=== PATIENT | female | born 1940 | race Caucasian/White ===

== ENCOUNTER 2018-11-14 13:32 | Observation (INO) ==
[2018-11-14 14:30] LABS: Basophils % 0.4 %; Eosinophils % 0.2 %; Hematocrit 40.5 % (35.3-44.9); Hemoglobin 13.3 g/dL (11.5-15.4); Immature Granulocytes % 0.2 % (0-4); Lymphocytes # 0.9 K/mcL (0.6-4.6); Lymphocytes % 11.4 %; Mean Corpuscular HGB Conc 32.8 g/dL (31.6-35.5); Mean Corpuscular Hemoglobin 31.8 pg (28.0-33.3); Mean Corpuscular Volume 96.9 fL (83.0-100.0); Mean Platelet Volume 8.9 fL (9.4-12.4); Monocytes # 0.8 K/mcL (0.0-1.3); Monocytes % 9.5 %; Neutrophils # 6.4 K/mcL (1.6-8.9); Platelet Count 273 K/mcL (140-400); Red Blood Count 4.18 M/mcL (3.82-4.97); Red Cell Distribution Width 13.9 % (11.5-14.5); Segmented Neutrophils % 78.3 %; White Blood Count 8.2 K/mcL (4.3-11.1)
[2018-11-14 14:42] LABS: Bilirubin,Urine Negative (Negative); Blood,Urine Moderate (Negative); Clarity,Urine Cloudy (Clear); Color,Urine Yellow (Yellow); Glucose,Urine (UA) Normal (Normal); Ketones,Urine Trace mg/dL (Negative); Leukocyte Esterase,Urine Small (Negative); Nitrite,Urine Negative (Negative); Protein,Urine Negative (Neg-Trace); Specific Gravity,Urine 1.019 (1.010-1.025); Urobilinogen,Urine Normal (Normal)
[2018-11-14 14:43] LABS: Bacteria,Urine None Seen per hpf (None-Few); Hyaline Casts,Urine None Seen per lpf (None-Few); RBC,Urine 30-50 per hpf (0-3); Squamous Epithelial Cell,Urine Moderate per lpf (None-Few)
[2018-11-14 14:52] LABS: Alanine Aminotransferase 12 Units/L (7-52); Albumin 3.9 g/dL (3.5-5.7); Albumin/Globulin Ratio 1.1 (1.1-2.2); Alkaline Phosphatase 66 Units/L (34-104); Aspartate Amino Transferase 16 Units/L (13-39); BUN/Creatinine Ratio 19 (6-26); Bilirubin,Total 0.4 mg/dL (0.3-1.0); Blood Urea Nitrogen 14 mg/dL (8-23); Calcium 9.5 mg/dL (8.6-10.3); Carbon Dioxide 26 mEq/L (23-29); Chloride 102 mEq/L (98-107); Globulin 3.4 g/dL (2.4-3.5); Glucose 148 mg/dL (70-105); Lipase 14 Units/L (11-82); Osmolality,Calculated 289 (280-300); Potassium 3.9 mEq/L (3.5-5.1); Sodium 138 mEq/L (136-145); Total Protein 7.3 g/dL (6.4-8.9); Troponin I < 0.03 ng/mL (< 0.04); eGFR For African Americans > 60 (> 60); eGFR For Non-African Americans > 60 (> 60)
[2018-11-14] MEDS ORDERED: Morphine Sulfate 2 MG/ML SYRINGE IVP ONE (15:02)
[2018-11-14] MEDS ORDERED: Ondansetron 4 MG/2 ML VIAL IVP ONE (15:02)
[2018-11-14] MEDS ORDERED: Morphine Sulfate Oral CONC 10 MG/0.5 ML ORAL.SYG SL PRN (16:58)
[2018-11-14] MEDS ORDERED: Ondansetron 4 MG/2 ML VIAL IVP PRN (16:58)
[2018-11-14 17:27] LABS: INR 1.1; Prothrombin Time 12.7 Seconds (9.4-12.1)
[2018-11-14] MEDS: 0.9 % Sodium Chloride 1,000 ML IVC SCH (19:08)
[2018-11-14] MEDS: *HR* Heparin 5,000 UNIT/ML VIAL SQ SCH (20:51)
[2018-11-15] MEDS: *HR* Heparin 5,000 UNIT/ML VIAL SQ SCH (05:28)
[2018-11-15] MEDS: 0.9 % Sodium Chloride 1,000 ML IVC SCH (08:05)
[2018-11-15 08:34] LABS: Basophils % 0.1 %; Hematocrit 42.2 % (35.3-44.9); Hemoglobin 13.3 g/dL (11.5-15.4); Immature Granulocytes % 1.1 % (0-4); Lymphocytes # 0.8 K/mcL (0.6-4.6); Lymphocytes % 4.7 %; Mean Corpuscular HGB Conc 31.5 g/dL (31.6-35.5); Mean Corpuscular Hemoglobin 31.9 pg (28.0-33.3); Mean Corpuscular Volume 101.2 fL (83.0-100.0); Mean Platelet Volume 9.3 fL (9.4-12.4); Monocytes # 1.9 K/mcL (0.0-1.3); Monocytes % 11.2 %; Neutrophils # 14.2 K/mcL (1.6-8.9); Platelet Count 265 K/mcL (140-400); Red Blood Count 4.17 M/mcL (3.82-4.97); Red Cell Distribution Width 14.3 % (11.5-14.5); Segmented Neutrophils % 82.9 %
[2018-11-15 08:36] LABS: White Blood Count 17.1 K/mcL (4.3-11.1)
[2018-11-15] MEDS ORDERED: Pantoprazole 40 MG VIAL IVP SCH (09:00)
[2018-11-15 10:36] LABS: BUN/Creatinine Ratio 20 (6-26); Blood Urea Nitrogen 16 mg/dL (8-23); Carbon Dioxide 21 mEq/L (23-29); Chloride 106 mEq/L (98-107); Glucose 129 mg/dL (70-105); Osmolality,Calculated 291 (280-300); Sodium 139 mEq/L (136-145); eGFR For African Americans > 60 (> 60); eGFR For Non-African Americans > 60 (> 60)
[2018-11-15] MEDS ORDERED: CefOXitin 2,000 MG VIAL ONE (19:19)
[2018-11-15] MEDS ORDERED: Bupivacaine/EPI 1:200k 0.5%PF 30 ML VIAL ONE (19:21)
[2018-11-15] MEDS ORDERED: Ipratropium/Albuterol Neb 3 ML ONE (19:30)
[2018-11-15] MEDS ORDERED: Lidocaine -MPF 2% 2 ML VIAL ONE (19:39)
[2018-11-15] MEDS ORDERED: *HR* FentaNYL (PF) 100 MCG/2 ML VIAL ONE (19:39)
[2018-11-15] MEDS ORDERED: Ondansetron 4 MG/2 ML VIAL ONE (19:39)
[2018-11-15] MEDS ORDERED: Dexamethasone 4 MG/ML VIAL ONE (19:39)
[2018-11-15] MEDS ORDERED: *HR* Rocuronium Bromide 50 MG/5 ML VIAL ONE (19:39)
[2018-11-15] MEDS ORDERED: *HR* Propofol 200 MG/20 ML VIAL IVP ONE (19:39)
[2018-11-15] MEDS ORDERED: *HR* Succinylcholine 200 MG/10 ML VIAL IVP ONE (19:39)
[2018-11-15] MEDS ORDERED: Lidocaine -MPF 4% 5 ML AMPUL ONE (19:39)
[2018-11-15] MEDS ORDERED: Famotidine 20 MG/2 ML VIAL ONE (19:48)
[2018-11-15] MEDS ORDERED: Acetaminophen IV 1,000 MG/100 ML INFUS..BTL ONE (19:48)
[2018-11-15] MEDS ORDERED: *HR* PHENYLEPHRINE 1,000 MCG/10 ML SYRINGE IVP ONE (20:03)
[2018-11-15] MEDS ORDERED: cefOXitin 2,000 MG in Water for inj. (sterile) 20 ML IVP ONE (20:05)
[2018-11-15] MEDS ORDERED: *HR* Labetalol 20 MG/4 ML SYRINGE IVP PRN (20:34)
[2018-11-15] MEDS ORDERED: *HR* Promethazine 25 MG/ML VIAL IVP PRN (20:34)
[2018-11-15] MEDS ORDERED: *HR* HYDROmorphone 2 MG TABLET PO PRN (20:34)
[2018-11-15] MEDS ORDERED: *HR* HYDROmorphone (PF) 1 MG/ML SYRINGE IVP PRN (20:34)
[2018-11-15] MEDS ORDERED: *HR* OxyCODONE Immed Rel 5 MG TABLET PO PRN (20:34)
[2018-11-15] MEDS ORDERED: Ketorolac 30 MG/ML VIAL ONE (20:40)
[2018-11-15] MEDS ORDERED: Neostigmine Methylsulfate 3 MG/3 ML SYRINGE ONE (20:40)
[2018-11-15] MEDS ORDERED: 0.9 % Sodium Chloride 1,000 ML IVC SCH (21:59)
[2018-11-15] MEDS ORDERED: Morphine Sulfate Oral CONC 10 MG/0.5 ML ORAL.SYG SL PRN (21:59)
[2018-11-15] MEDS ORDERED: Ondansetron 4 MG/2 ML VIAL IVP PRN (21:59)
[2018-11-15] MEDS ORDERED: *HR* OxyCODONE/APAP 5/325 TABLET PO PRN (21:59)
[2018-11-16] MEDS ORDERED: *HR* Heparin 5,000 UNIT/ML VIAL SQ SCH (06:00)
[2018-11-16] MEDS ORDERED: Pantoprazole 40 MG VIAL IVP SCH (06:30)
[2018-11-16 06:49] VITALS: BP 106/74
[2018-11-16] MEDS: 0.9 % Sodium Chloride 1,000 ML IVC SCH (07:35)
[2018-11-16] MEDS: *HR* Heparin 5,000 UNIT/ML VIAL SQ SCH (07:35)
== END 2018-11-16 10:53 | disposition home or self-care (01) ==
LOC: 3ANU 13:32 → EMEROOARM 13:32 → 3ANU 18:14
PROVIDERS: ADMIT Surgery; ATTEND Surgery

== ENCOUNTER 2018-11-19 10:38 | Inpatient (IN) ==
--- NOTE | 2018-11-19 11:09 | Emergency Department Note ---
Disposition Clinical Impression: Bile leak Nausea and vomiting Qualifiers: Vomiting type: unspecified Vomiting Intractability: intractable Qualified Code(s): R11.2 - Nausea with vomiting, unspecified Abdominal pain Qualifiers: Abdominal location: generalized Qualified Code(s): R10.84 - Generalized abdominal pain Disposition: Admitted As Inpatient Condition: Fair Referrals: Jason Castro MD [Primary Care Provider] - Forms: ED Satisfaction Letter Time of Disposition: 15:34 General Adult HPI - General Chief complaint: ED GI Bleed Stated complaint: vomiting blood s/p gallbladder sx Time Seen by Provider: 11/19/18 10:48 Source: patient Mode of arrival: ambulatory Limitations: no limitations Nursing Notes Reviewed: Yes Vital Signs Reviewed: Yes - History of Present Illness HPI Narrative: Patient is a 78-year-old female with past medical history of recent cholecystectomy presents ED for evaluation of abdominal pain, hematemesis, and constipation. 4 days ago patient underwent emergent surgery for cholecystectomy with Dr. Go. Earlier this evening around midnight the patient began having episodes of nausea and then she has had 2-3 episodes of coffee-ground like emesis associated with diffuse abdominal pain and distention. She reports that she has not had a bowel movement since prior to surgery but has been on stool softeners. So that she denies any melena or hematochezia. Pain Scale: 8 - Related Data Home Medications Medication Instructions Recorded Confirmed Aspirin 325 mg PO DAILY 05/15/18 11/19/18 Calcium Carbonate [Calcium] 500 mg PO DAILY 05/15/18 11/19/18 Cholecalciferol (Vitamin D3) 2,000 unit PO DAILY 05/15/18 11/19/18 [Vitamin D3] Folic Acid 1 mg PO DAILY 05/15/18 11/19/18 Levothyroxine [Synthroid] 100 mcg PO DAILY 05/15/18 11/19/18 Methotrexate [Otrexup] 10 mg PO FR 05/15/18 11/19/18 predniSONE [PredniSONE] 5 mg PO DAILY 05/15/18 11/19/18 raNITIdine HCl [Zantac] 150 mg PO BID PRN 05/15/18 11/19/18 Ibuprofen [Ibu-200] 200 mg PO Q6HR PRN 11/19/18 11/19/18 Previous Rx's Medication Instructions Recorded Docusate Sodium [Colace] 100 mg PO BID PRN #30 capsule 11/16/18 OxyCODONE Immed Rel [Roxicodone 5 5 mg PO Q6HR PRN 5 Days #20 tablet 11/16/18 MG] Allergies Allergy/AdvReac Type Severity Reaction Status Date / Time No Known Allergies Allergy Verified 05/15/18 14:08 All systems ED: reviewed and negative except as stated. Review of Systems: As Per HPI Constitutional: Denies: fever, chills Cardiovascular: Denies: chest pain, palpitations, dyspnea on exertion, edema, syncope, paroxysmal nocturnal dyspnea Respiratory: Denies: cough, dyspnea, wheezes Gastrointestinal: Reports: abdominal pain, nausea, vomiting, constipation, hematemesis. Denies: diarrhea, melena, hematochezia Genitourinary: Denies: urgency, dysuria, frequency Musculoskeletal: Denies: back pain, neck pain Past Medical History - Past Medical History Attestation: Yes The following information was validated with the patient. Medical history: Reports: aortic aneurysm, arthritis, COPD, coronary artery disease, GERD, thyroid disease Surgical history: Reports: angioplasty/stent Psychiatric history: Reports: no psych history - Social History Smoking Status: Former smoker Smokeless Tobacco Status: No Alcohol use: Reports: none Drug use: Reports: none Physical Exam CONSTITUTIONAL: Alert and oriented X3, in no apparent distress HEAD: Normocephalic; atraumatic. EYES: PERRL, no scleral icterus. NOSE: The nose is normal in appearance without rhinorrhea RESP: Normal chest excursion with respiration; breath sounds clear and equal bilaterally; no wheezes, rhonchi, or rales CARD: Regular rhythm, without murmurs, rub or gallop ABD: Non-distended; non-tender, soft,without rigidity, rebound or guarding SKIN: Normal for age and race; warm and dry; no apparent lesions - General Limitations: no limitations General appearance: alert, in no apparent distress Course Course Narrative: Patient's evaluation concerning for intra-abdominal etiology possibly obstr uction versus infection status post cholecystectomy versus constipation versus acute upper GI bleed. Patient will undergo evaluation for blood loss anemia, cardiac evaluation as well as a CT scan of the abdomen to evaluate for infection or obstruction. Patient's pain was treated with morphine and nausea treated with Zofran and she will be reassessed. Stable at this time. - Reevaluation(s) Reevaluation #1: Patient underwent evaluation for post operative complications which she had a CT scan of the abdomen and pelvis that showed ascites however it also showed evidence of a possible biliary leak. I consult with the surgeon on-call, Dr. Gaona and she recommended nuclear medicine scan for biliary leak. The scan was positive for biliary leak. I discussed this with Dr. Gaona and she requested Zosyn, maintenance IV fluids, nothing by mouth and also requested that the nursing staff, and consult her once the patient is in her room upstairs. Patient has had intractable vomiting while in the ED that has responded to an additional dose of Zofran. Her pain has been controlled with morphine. Discussed these findings with the patient and they agree with the current plan. Vital Signs Temperature 98.1 F 11/19/18 10:41 Pulse Rate 96 11/19/18 10:41 Respiratory Rate 18 11/19/18 10:41 Blood Pressure 113/65 11/19/18 10:41 O2 Sat by Pulse Oximetry 92 11/19/18 10:41 Temperature 98.1 F 11/19/18 10:41 Pulse Rate 94 11/19/18 14:20 Respiratory Rate 18 11/19/18 14:20 Blood Pressure 131/70 11/19/18 14:20 O2 Sat by Pulse Oximetry 93 11/19/18 14:23 Oxygen Delivery Oxygen Delivery Room Air Medical Decision Making - Medical Records Medical records reviewed: Yes I reviewed the patient's medical records. - Lab Data Lab results reviewed: Yes I reviewed the patient's lab results. Result diagrams: 11/19/18 11:02 11/19/18 11:02 Lab Results 11/19/18 11/19/18 11/19/18 Range/Units 11:02 11:02 11:02 WBC 14.8 H (4.3-11.1) K/mcL RBC 4.11 (3.82-4.97) M/mcL Hgb 13.1 (11.5-15.4) g/dL Hct 39.9 (35.3-44.9) % MCV 97.1 (83.0-100.0) fL MCH 31.9 (28.0-33.3) pg MCHC 32.8 (31.6-35.5) g/dL RDW 14.7 H (11.5-14.5) % Plt Count 270 (140-400) K/mcL MPV 9.7 (9.4-12.4) fL Seg Neutrophils % 57.0 % Band Neutrophils % 33.0 H (0-4) % Lymphocytes % 4.0 % Monocytes % 6.0 % Neutrophils # 13.3 H (1.6-8.9) K/mcL Lymphocytes # 0.6 (0.6-4.6) K/mcL Monocytes # 0.9 (0.0-1.3) K/mcL Nucleated RBCs/100 WBC 0.1 H (0) /100 WBC Platelet Estimate Normal (Normal) PT 14.2 H (9.4-12.1) Seconds INR 1.3 APTT 26.8 (26.0-36.0) Seconds Sodium 133 L (136-145) mEq/L Potassium 4.1 (3.5-5.1) mEq/L Chloride 97 L (98-107) mEq/L Carbon Dioxide 28 (23-29) mEq/L BUN 23 (8-23) mg/dL Creatinine 0.83 (0.60-1.20) mg/dL Est GFR ( Amer) > 60 (> 60) Est GFR (Non-Af Amer) > 60 (> 60) BUN/Creatinine Ratio 28 H (6-26) Glucose 149 H (70-105) mg/dL Calculated Osmolality 282 (280-300) Calcium 9.3 (8.6-10.3) mg/dL Total Bilirubin (0.3-1.0) mg/dL Direct Bilirubin (0.0-0.2) mg/dL Indirect Bilirubin (0.0-1.2) mg/dL AST (13-39) Units/L ALT (7-52) Units/L Alkaline Phosphatase (34-104) Units/L Troponin I (< 0.04) ng/mL Serum Total Protein (6.4-8.9) g/dL Albumin (3.5-5.7) g/dL Globulin (2.4-3.5) g/dL Albumin/Globulin Ratio (1.1-2.2) Lipase (11-82) Units/L Urine Color (Yellow) Urine Clarity (Clear) Urine pH (5.0-8.0) pH Units Ur Specific [place] (1.010-1.025) Urine Protein (Neg-Trace) mg/dL Urine Glucose (UA) (Normal) mg/dL Urine Ketones (Negative) mg/dL Urine Blood (Negative) Urine Nitrite (Negative) Urine Bilirubin (Negative) Urine Urobilinogen (Normal) mg/dL Ur Leukocyte Esterase (Negative) Urine Microscopic RBC (0-3) per hpf Urine Microscopic WBC (0-3) per hpf Ur Squamous Epith Cells (None-Few) per lpf Urine Bacteria (None-Few) per hpf Hyaline Casts (None-Few) per lpf Urine Yeast (None Seen) per hpf Ur Culture Indicated? (NO) Stool Occult Bld Scrn (Negative) Blood Type Antibody Screen 11/19/18 11/19/18 11/19/18 Range/Units 11:02 11:02 12:11 WBC (4.3-11.1) K/mcL RBC (3.82-4.97) M/mcL Hgb (11.5-15.4) g/dL Hct (35.3-44.9) % MCV (83.0-100.0) fL MCH (28.0-33.3) pg MCHC (31.6-35.5) g/dL RDW (11.5-14.5) % Plt Count (140-400) K/mcL MPV (9.4-12.4) fL Seg Neutrophils % % Band Neutrophils % (0-4) % Lymphocytes % % Monocytes % % Neutrophils # (1.6-8.9) K/mcL Lymphocytes # (0.6-4.6) K/mcL Monocytes # (0.0-1.3) K/mcL Nucleated RBCs/100 WBC (0) /100 WBC Platelet Estimate (Normal) PT (9.4-12.1) Seconds INR APTT (26.0-36.0) Seconds Sodium (136-145) mEq/L Potassium (3.5-5.1) mEq/L Chloride (98-107) mEq/L Carbon Dioxide (23-29) mEq/L BUN (8-23) mg/dL Creatinine (0.60-1.20) mg/dL Est GFR ( Amer) (> 60) Est GFR (Non-Af Amer) (> 60) BUN/Creatinine Ratio (6-26) Glucose (70-105) mg/dL Calculated Osmolality (280-300) Calcium (8.6-10.3) mg/dL Total Bilirubin 1.4 H (0.3-1.0) mg/dL Direct Bilirubin 0.8 H (0.0-0.2) mg/dL Indirect Bilirubin 0.6 (0.0-1.2) mg/dL AST 18 (13-39) Units/L ALT 21 (7-52) Units/L Alkaline Phosphatase 101 (34-104) Units/L Troponin I < 0.03 (< 0.04) ng/mL Serum Total Protein 6.3 L (6.4-8.9) g/dL Albumin 2.9 L (3.5-5.7) g/dL Globulin 3.4 (2.4-3.5) g/dL Albumin/Globulin Ratio 0.9 L (1.1-2.2) Lipase 3 L (11-82) Units/L Urine Color (Yellow) Urine Clarity (Clear) Urine pH (5.0-8.0) pH Units Ur Specific [place] (1.010-1.025) Urine Protein (Neg-Trace) mg/dL Urine Glucose (UA) (Normal) mg/dL Urine Ketones (Negative) mg/dL Urine Blood (Negative) Urine Nitrite (Negative) Urine Bilirubin (Negative) Urine Urobilinogen (Normal) mg/dL Ur Leukocyte Esterase (Negative) Urine Microscopic RBC (0-3) per hpf Urine Microscopic WBC (0-3) per hpf Ur Squamous Epith Cells (None-Few) per lpf Urine Bacteria (None-Few) per hpf Hyaline Casts (None-Few) per lpf Urine Yeast (None Seen) per hpf Ur Culture Indicated? (NO) Stool Occult Bld Scrn Negative (Negative) Blood Type B NEGATIVE Antibody Screen NEGATIVE 11/19/18 Range/Units 13:00 WBC (4.3-11.1) K/mcL RBC (3.82-4.97) M/mcL Hgb (11.5-15.4) g/dL Hct (35.3-44.9) % MCV (83.0-100.0) fL MCH (28.0-33.3) pg MCHC (31.6-35.5) g/dL RDW (11.5-14.5) % Plt Count (140-400) K/mcL MPV (9.4-12.4) fL Seg Neutrophils % % Band Neutrophils % (0-4) % Lymphocytes % % Monocytes % % Neutrophils # (1.6-8.9) K/mcL Lymphocytes # (0.6-4.6) K/mcL Monocytes # (0.0-1.3) K/mcL Nucleated RBCs/100 WBC (0) /100 WBC Platelet Estimate (Normal) PT (9.4-12.1) Seconds INR APTT (26.0-36.0) Seconds Sodium (136-145) mEq/L Potassium (3.5-5.1) mEq/L Chloride (98-107) mEq/L Carbon Dioxide (23-29) mEq/L BUN (8-23) mg/dL Creatinine (0.60-1.20) mg/dL Est GFR ( Amer) (> 60) Est GFR (Non-Af Amer) (> 60) BUN/Creatinine Ratio (6-26) Glucose (70-105) mg/dL Calculated Osmolality (280-300) Calcium (8.6-10.3) mg/dL Total Bilirubin (0.3-1.0) mg/dL Direct Bilirubin (0.0-0.2) mg/dL Indirect Bilirubin (0.0-1.2) mg/dL AST (13-39) Units/L ALT (7-52) Units/L Alkaline Phosphatase (34-104) Units/L Troponin I (< 0.04) ng/mL Serum Total Protein (6.4-8.9) g/dL Albumin (3.5-5.7) g/dL Globulin (2.4-3.5) g/dL Albumin/Globulin Ratio (1.1-2.2) Lipase (11-82) Units/L Urine Color [place] A (Yellow) Urine Clarity Slightly Hazy (Clear) Urine pH 6.0 (5.0-8.0) pH Units Ur Specific [place] 1.028 H (1.010-1.025) Urine Protein 100 H (Neg-Trace) mg/dL Urine Glucose (UA) Normal (Normal) mg/dL Urine Ketones Trace H (Negative) mg/dL Urine Blood Trace H (Negative) Urine Nitrite Negative (Negative) Urine Bilirubin Moderate H (Negative) Urine Urobilinogen 2.0 H (Normal) mg/dL Ur Leukocyte Esterase Trace H (Negative) Urine Microscopic RBC 0-3 (0-3) per hpf Urine Microscopic WBC 0-3 (0-3) per hpf Ur Squamous Epith Cells Many H (None-Few) per lpf Urine Bacteria Few (None-Few) per hpf Hyaline Casts Few (None-Few) per lpf Urine Yeast Few H (None Seen) per hpf Ur Culture Indicated? YES A (NO) Stool Occult Bld Scrn (Negative) Blood Type Antibody Screen - Radiology Data Radiology results reviewed: Yes I reviewed the patient's radiology results. Chest X-Ray 11/19/18 10:48 IMPRESSION: No acute findings. D/ / 11/19/2018 12:28:30 Corwin Cameron MD / Sangita Stewart Interpreting Provider: Corwin Cameron MD Abdomen/Pelvis CT 11/19/18 11:00 IMPRESSION: Ascites seen within the abdomen and pelvis most prominently around the gallbladder fossa region. The patient had recent gallbladder surgery. This may be secondary to the surgery. I do not see any definitive evidence for abscess however this may also be related to a possible biliary leak and if further evaluation is needed I would recommend hepatobiliary scan. D/ /19/2018 12:21:56 Timmy Reilly MD / fabi Interpreting Provider: Timmy Reilly MD Bile Acid Absorption NM 11/19/18 13:03 IMPRESSION: 1. No activity in the gallbladder consistent with cholecystectomy. 2. Abnormal radiotracer accumulation in the subhepatic space on the right side with extension minimally into the right pericolic gutter, abnormal, consistent with bile leak. There is also reflux of radiotracer into the stomach. Critical results were called by Dr. Zoe Garcia MD to Aidan Cortez DO on 11/19/2018 at 14:54. D/ / 11/19/2018 14:57:11 Zoe Garcia MD / fabi Interpreting Provider: Zoe Garcia MD - EKG Data EKG #1 EKG attestation: Yes I reviewed and interpreted this EKG. EKG results narrative: EKG done at 11:16 shows sinus rhythm at a rate of 96 bpm. Normal axis. Intervals within normal limits. Patient has abnormal T waves in lead V2 and V3 with slight inversions however when compared to old EKG this is unchanged performed on 11/14/2018.
[2018-11-19 11:19] LABS: Hematocrit 39.9 % (35.3-44.9); Hemoglobin 13.1 g/dL (11.5-15.4); Lymphocytes # 0.6 K/mcL (0.6-4.6); Mean Corpuscular HGB Conc 32.8 g/dL (31.6-35.5); Mean Corpuscular Hemoglobin 31.9 pg (28.0-33.3); Mean Corpuscular Volume 97.1 fL (83.0-100.0); Mean Platelet Volume 9.7 fL (9.4-12.4); Nucleated Red Blood Cells 0.1 /100 WBC (0); Platelet Count 270 K/mcL (140-400); Red Blood Count 4.11 M/mcL (3.82-4.97); Red Cell Distribution Width 14.7 % (11.5-14.5); White Blood Count 14.8 K/mcL (4.3-11.1)
[2018-11-19 11:24] LABS: INR 1.3; Prothrombin Time 14.2 Seconds (9.4-12.1)
[2018-11-19 11:37] LABS: Alanine Aminotransferase 21 Units/L (7-52); Albumin 2.9 g/dL (3.5-5.7); Albumin/Globulin Ratio 0.9 (1.1-2.2); Alkaline Phosphatase 101 Units/L (34-104); Aspartate Amino Transferase 18 Units/L (13-39); BUN/Creatinine Ratio 28 (6-26); Bilirubin,Direct 0.8 mg/dL (0.0-0.2); Bilirubin,Indirect 0.6 mg/dL (0.0-1.2); Bilirubin,Total 1.4 mg/dL (0.3-1.0); Blood Urea Nitrogen 23 mg/dL (8-23); Calcium 9.3 mg/dL (8.6-10.3); Carbon Dioxide 28 mEq/L (23-29); Chloride 97 mEq/L (98-107); Globulin 3.4 g/dL (2.4-3.5); Glucose 149 mg/dL (70-105); Lipase 3 Units/L (11-82); Osmolality,Calculated 282 (280-300); Potassium 4.1 mEq/L (3.5-5.1); Sodium 133 mEq/L (136-145); Total Protein 6.3 g/dL (6.4-8.9); eGFR For African Americans > 60 (> 60); eGFR For Non-African Americans > 60 (> 60)
[2018-11-19] MEDS ORDERED: Morphine Sulfate 2 MG/ML SYRINGE IVP ONE ×2 (11:38→13:50)
[2018-11-19 11:44] LABS: Troponin I < 0.03 ng/mL (< 0.04)
[2018-11-19 11:50] LABS: Activated Partial Thrombo Time 26.8 Seconds (26.0-36.0)
[2018-11-19 12:12] LABS: Monocytes # 0.9 K/mcL (0.0-1.3); Neutrophils # 13.3 K/mcL (1.6-8.9)
[2018-11-19 12:14] LABS: Platelet Estimate Normal (Normal)
[2018-11-19 13:14] LABS: Bilirubin,Urine Moderate (Negative); Blood,Urine Trace (Negative); Color,Urine Orange (Yellow); Glucose,Urine (UA) Normal (Normal); Ketones,Urine Trace mg/dL (Negative); Protein,Urine 100 mg/dL (Neg-Trace); Specific Gravity,Urine 1.028 (1.010-1.025)
[2018-11-19 13:15] LABS: Leukocyte Esterase,Urine Trace (Negative); Nitrite,Urine Negative (Negative)
[2018-11-19 13:16] LABS: Hyaline Casts,Urine Few per lpf (None-Few); Squamous Epithelial Cell,Urine Many per lpf (None-Few); WBC,Urine 0-3 per hpf (0-3)
[2018-11-19 13:21] LABS: Clarity,Urine Slightly Hazy (Clear)
[2018-11-19 13:32] LABS: RBC,Urine 0-3 per hpf (0-3); Yeast,Urine Few per hpf (None Seen)
[2018-11-19 13:33] LABS: Bacteria,Urine Few per hpf (None-Few)
[2018-11-19] MEDS ORDERED: Ondansetron 4 MG/2 ML VIAL ONE (13:42)
[2018-11-19] MEDS ORDERED: Ondansetron 4 MG/2 ML VIAL IVP ONE (13:50)
--- NOTE | 2018-11-19 15:23 | Electrocardiograph Report ---
[employer] [facility] Test Date: 2018-11-19 Pat Name: Neris Berman Department: [id number] Room: Gender: F Telephone Order Clerk Room Service: : 1940 Requested By: Quinn Wall Order Number: [id number] Reading MD: Shan Ruelas Measurements Intervals [place] Rate: 96 P: 38 OR: 150 QRS: 7 QRSD: 101 T: 58 QT: 331 QTc: 419 Interpretive Statements Sinus rhythm Borderline low voltage, extremity leads Electronically Signed On 11-19-2018 15:22:05 EDT by Shan Ruelas
[2018-11-19] MEDS ORDERED: Piperacillin/Tazobactam 3.375 GM in Water for inj. (sterile) 20 ML IVP ONE (15:35)
--- NOTE | 2018-11-19 15:38 | Emergency Department Note ---
Disposition Clinical Impression: Bile leak Nausea and vomiting Qualifiers: Vomiting type: unspecified Vomiting Intractability: intractable Qualified Code(s): R11.2 - Nausea with vomiting, unspecified Abdominal pain Qualifiers: Abdominal location: generalized Qualified Code(s): R10.84 - Generalized abdominal pain Disposition: Admitted As Inpatient Referrals: Jason Castro MD [Primary Care Provider] - Forms: ED Satisfaction Letter Time of Disposition: 15:37 General Adult HPI - General Chief complaint: ED GI Bleed Stated complaint: vomiting blood s/p gallbladder sx Time Seen by Provider: 11/19/18 10:48 Source: patient Mode of arrival: ambulatory Limitations: no limitations Nursing Notes Reviewed: Yes Vital Signs Reviewed: Yes - History of Present Illness Pain Scale: 4 - Related Data Home Medications Medication Instructions Recorded Confirmed Aspirin 325 mg PO DAILY 05/15/18 11/19/18 Calcium Carbonate [Calcium] 500 mg PO DAILY 05/15/18 11/19/18 Cholecalciferol (Vitamin D3) 2,000 unit PO DAILY 05/15/18 11/19/18 [Vitamin D3] Folic Acid 1 mg PO DAILY 05/15/18 11/19/18 Levothyroxine [Synthroid] 100 mcg PO DAILY 05/15/18 11/19/18 Methotrexate [Otrexup] 10 mg PO FR 05/15/18 11/19/18 predniSONE [PredniSONE] 5 mg PO DAILY 05/15/18 11/19/18 raNITIdine HCl [Zantac] 150 mg PO BID PRN 05/15/18 11/19/18 Ibuprofen [Ibu-200] 200 mg PO Q6HR PRN 11/19/18 11/19/18 Previous Rx's Medication Instructions Recorded Docusate Sodium [Colace] 100 mg PO BID PRN #30 capsule 11/16/18 OxyCODONE Immed Rel [Roxicodone 5 5 mg PO Q6HR PRN 5 Days #20 tablet 11/16/18 MG] Allergies Allergy/AdvReac Type Severity Reaction Status Date / Time No Known Allergies Allergy Verified 05/15/18 14:08 Constitutional: Denies: fever, chills Cardiovascular: Denies: chest pain, palpitations, dyspnea on exertion, edema, s yncope, paroxysmal nocturnal dyspnea Respiratory: Denies: cough, dyspnea, wheezes Gastrointestinal: Reports: abdominal pain, nausea, vomiting, constipation, hematemesis. Denies: diarrhea, melena, hematochezia Genitourinary: Denies: urgency, dysuria, frequency Musculoskeletal: Denies: back pain, neck pain Past Medical History - Past Medical History Medical history: Reports: aortic aneurysm, arthritis, COPD, coronary artery disease, GERD, thyroid disease Surgical history: Reports: angioplasty/stent Psychiatric history: Reports: no psych history - Social History Smoking Status: Former smoker Smokeless Tobacco Status: No Alcohol use: Reports: none Drug use: Reports: none Physical Exam - General Limitations: no limitations General appearance: alert, in no apparent distress Course Vital Signs Temperature 98.1 F 11/19/18 10:41 Pulse Rate 96 11/19/18 10:41 Respiratory Rate 18 11/19/18 10:41 Blood Pressure 113/65 11/19/18 10:41 O2 Sat by Pulse Oximetry 92 11/19/18 10:41 Temperature 98.1 F 11/19/18 10:41 Pulse Rate 94 11/19/18 14:20 Respiratory Rate 18 11/19/18 14:20 Blood Pressure 131/70 11/19/18 14:20 O2 Sat by Pulse Oximetry 93 11/19/18 14:23 Oxygen Delivery Oxygen Delivery Room Air Medical Decision Making - Lab Data Result diagrams: 11/19/18 11:02 11/19/18 11:02 Lab Results 11/19/18 11/19/18 11/19/18 Range/Units 11:02 11:02 11:02 WBC 14.8 H (4.3-11.1) K/mcL RBC 4.11 (3.82-4.97) M/mcL Hgb 13.1 (11.5-15.4) g/dL Hct 39.9 (35.3-44.9) % MCV 97.1 (83.0-100.0) fL MCH 31.9 (28.0-33.3) pg MCHC 32.8 (31.6-35.5) g/dL RDW 14.7 H (11.5-14.5) % Plt Count 270 (140-400) K/mcL MPV 9.7 (9.4-12.4) fL Seg Neutrophils % 57.0 % Band Neutrophils % 33.0 H (0-4) % Lymphocytes % 4.0 % Monocytes % 6.0 % Neutrophils # 13.3 H (1.6-8.9) K/mcL Lymphocytes # 0.6 (0.6-4.6) K/mcL Monocytes # 0.9 (0.0-1.3) K/mcL Nucleated RBCs/100 WBC 0.1 H (0) /100 WBC Platelet Estimate Normal (Normal) PT 14.2 H (9.4-12.1) Seconds INR 1.3 APTT 26.8 (26.0-36.0) Seconds Sodium 133 L (136-145) mEq/L Potassium 4.1 (3.5-5.1) mEq/L Chloride 97 L (98-107) mEq/L Carbon Dioxide 28 (23-29) mEq/L BUN 23 (8-23) mg/dL Creatinine 0.83 (0.60-1.20) mg/dL Est GFR ( Amer) > 60 (> 60) Est GFR (Non-Af Amer) > 60 (> 60) BUN/Creatinine Ratio 28 H (6-26) Glucose 149 H (70-105) mg/dL Calculated Osmolality 282 (280-300) Calcium 9.3 (8.6-10.3) mg/dL Total Bilirubin (0.3-1.0) mg/dL Direct Bilirubin (0.0-0.2) mg/dL Indirect Bilirubin (0.0-1.2) mg/dL AST (13-39) Units/L ALT (7-52) Units/L Alkaline Phosphatase (34-104) Units/L Troponin I (< 0.04) ng/mL Serum Total Protein (6.4-8.9) g/dL Albumin (3.5-5.7) g/dL Globulin (2.4-3.5) g/dL Albumin/Globulin Ratio (1.1-2.2) Lipase (11-82) Units/L Urine Color (Yellow) Urine Clarity (Clear) Urine pH (5.0-8.0) pH Units Ur Specific [place] (1.010-1.025) Urine Protein (Neg-Trace) mg/dL Urine Glucose (UA) (Normal) mg/dL Urine Ketones (Negative) mg/dL Urine Blood (Negative) Urine Nitrite (Negative) Urine Bilirubin (Negative) Urine Urobilinogen (Normal) mg/dL Ur Leukocyte Esterase (Negative) Urine Microscopic RBC (0-3) per hpf Urine Microscopic WBC (0-3) per hpf Ur Squamous Epith Cells (None-Few) per lpf Urine Bacteria (None-Few) per hpf Hyaline Casts (None-Few) per lpf Urine Yeast (None Seen) per hpf Ur Culture Indicated? (NO) Stool Occult Bld Scrn (Negative) Blood Type Antibody Screen 11/19/18 11/19/18 11/19/18 Range/Units 11:02 11:02 12:11 WBC (4.3-11.1) K/mcL RBC (3.82-4.97) M/mcL Hgb (11.5-15.4) g/dL Hct (35.3-44.9) % MCV (83.0-100.0) fL MCH (28.0-33.3) pg MCHC (31.6-35.5) g/dL RDW (11.5-14.5) % Plt Count (140-400) K/mcL MPV (9.4-12.4) fL Seg Neutrophils % % Band Neutrophils % (0-4) % Lymphocytes % % Monocytes % % Neutrophils # (1.6-8.9) K/mcL Lymphocytes # (0.6-4.6) K/mcL Monocytes # (0.0-1.3) K/mcL Nucleated RBCs/100 WBC (0) /100 WBC Platelet Estimate (Normal) PT (9.4-12.1) Seconds INR APTT (26.0-36.0) Seconds Sodium (136-145) mEq/L Potassium (3.5-5.1) mEq/L Chloride (98-107) mEq/L Carbon Dioxide (23-29) mEq/L BUN (8-23) mg/dL Creatinine (0.60-1.20) mg/dL Est GFR ( Amer) (> 60) Est GFR (Non-Af Amer) (> 60) BUN/Creatinine Ratio (6-26) Glucose (70-105) mg/dL Calculated Osmolality (280-300) Calcium (8.6-10.3) mg/dL Total Bilirubin 1.4 H (0.3-1.0) mg/dL Direct Bilirubin 0.8 H (0.0-0.2) mg/dL Indirect Bilirubin 0.6 (0.0-1.2) mg/dL AST 18 (13-39) Units/L ALT 21 (7-52) Units/L Alkaline Phosphatase 101 (34-104) Units/L Troponin I < 0.03 (< 0.04) ng/mL Serum Total Protein 6.3 L (6.4-8.9) g/dL Albumin 2.9 L (3.5-5.7) g/dL Globulin 3.4 (2.4-3.5) g/dL Albumin/Globulin Ratio 0.9 L (1.1-2.2) Lipase 3 L (11-82) Units/L Urine Color (Yellow) Urine Clarity (Clear) Urine pH (5.0-8.0) pH Units Ur Specific [place] (1.010-1.025) Urine Protein (Neg-Trace) mg/dL Urine Glucose (UA) (Normal) mg/dL Urine Ketones (Negative) mg/dL Urine Blood (Negative) Urine Nitrite (Negative) Urine Bilirubin (Negative) Urine Urobilinogen (Normal) mg/dL Ur Leukocyte Esterase (Negative) Urine Microscopic RBC (0-3) per hpf Urine Microscopic WBC (0-3) per hpf Ur Squamous Epith Cells (None-Few) per lpf Urine Bacteria (None-Few) per hpf Hyaline Casts (None-Few) per lpf Urine Yeast (None Seen) per hpf Ur Culture Indicated? (NO) Stool Occult Bld Scrn Negative (Negative) Blood Type B NEGATIVE Antibody Screen NEGATIVE 11/19/18 Range/Units 13:00 WBC (4.3-11.1) K/mcL RBC (3.82-4.97) M/mcL Hgb (11.5-15.4) g/dL Hct (35.3-44.9) % MCV (83.0-100.0) fL MCH (28.0-33.3) pg MCHC (31.6-35.5) g/dL RDW (11.5-14.5) % Plt Count (140-400) K/mcL MPV (9.4-12.4) fL Seg Neutrophils % % Band Neutrophils % (0-4) % Lymphocytes % % Monocytes % % Neutrophils # (1.6-8.9) K/mcL Lymphocytes # (0.6-4.6) K/mcL Monocytes # (0.0-1.3) K/mcL Nucleated RBCs/100 WBC (0) /100 WBC Platelet Estimate (Normal) PT (9.4-12.1) Seconds INR APTT (26.0-36.0) Seconds Sodium (136-145) mEq/L Potassium (3.5-5.1) mEq/L Chloride (98-107) mEq/L Carbon Dioxide (23-29) mEq/L BUN (8-23) mg/dL Creatinine (0.60-1.20) mg/dL Est GFR ( Amer) (> 60) Est GFR (Non-Af Amer) (> 60) BUN/Creatinine Ratio (6-26) Glucose (70-105) mg/dL Calculated Osmolality (280-300) Calcium (8.6-10.3) mg/dL Total Bilirubin (0.3-1.0) mg/dL Direct Bilirubin (0.0-0.2) mg/dL Indirect Bilirubin (0.0-1.2) mg/dL AST (13-39) Units/L ALT (7-52) Units/L Alkaline Phosphatase (34-104) Units/L Troponin I (< 0.04) ng/mL Serum Total Protein (6.4-8.9) g/dL Albumin (3.5-5.7) g/dL Globulin (2.4-3.5) g/dL Albumin/Globulin Ratio (1.1-2.2) Lipase (11-82) Units/L Urine Color [place] A (Yellow) Urine Clarity Slightly Hazy (Clear) Urine pH 6.0 (5.0-8.0) pH Units Ur Specific [place] 1.028 H (1.010-1.025) Urine Protein 100 H (Neg-Trace) mg/dL Urine Glucose (UA) Normal (Normal) mg/dL Urine Ketones Trace H (Negative) mg/dL Urine Blood Trace H (Negative) Urine Nitrite Negative (Negative) Urine Bilirubin Moderate H (Negative) Urine Urobilinogen 2.0 H (Normal) mg/dL Ur Leukocyte Esterase Trace H (Negative) Urine Microscopic RBC 0-3 (0-3) per hpf Urine Microscopic WBC 0-3 (0-3) per hpf Ur Squamous Epith Cells Many H (None-Few) per lpf Urine Bacteria Few (None-Few) per hpf Hyaline Casts Few (None-Few) per lpf Urine Yeast Few H (None Seen) per hpf Ur Culture Indicated? YES A (NO) Stool Occult Bld Scrn (Negative) Blood Type Antibody Screen Attestation Statement - Attestation Attestation: I have seen this patient with the resident physician, I have personally evaluated this patient. I had reviewed the chart and document dictation by the resident physician and aM in agreement with the information documented by the resident physician. Please see documentation by the resident physician for complete chart including past medical history, family medical history, review of systems, current history and physical and laboratory and imaging studies. I was present for all procedures, provided direct supervision for all procedures, was present for the entirety of all procedures and provided direct guidance during the procedures. Please see documentation by the resident physician for any procedures performed. I have reviewed all interpretations of EKGs, and reviewed all EKGs performed on patient's as well. I have also reviewed reports of imaging as provided by radiology. Patient presented emergency department with chief complaint increasing abdominal pain and nausea and vomiting with dark brown almost bhsqke-fazwko-trkvegkyr emesis, she is 4-5 days post gallbladder removal. Patient and IV placed she was given IV pain medication IV nausea medication and IV fluids. Basic laboratory studies were ordered. These were all reviewed. A CT scan with IV contrast was ordered which showed concerning findings potential for a bile leak, spoke with surgery who requested a HIDA scan. HIDA scan showed evidence confirming bile leak. Surgery again consulted, recommends IV Zosyn and admission to their service. Patient was admitted for further management.
[2018-11-19] MEDS ORDERED: Water for inj. (sterile) 20 ML IV ONE (15:46)
[2018-11-19] MEDS ORDERED: Piperacillin/Tazobactam 3.375 GM in 0.9 % Sodium Chloride Mini Bag 100 ML IVPB ONE (15:49)
[2018-11-19] MEDS: 0.9 % Sodium Chloride 1,000 ML IVC SCH (15:51)
--- NOTE | 2018-11-19 21:32 | Acute Care Surgery H&P ---
Date of Encounter: 11/19/18 Time of Encounter: 17:00 Assessment and Plan (1) Bile leak Current Visit: Yes Status: Acute The assessment and plan as outlined above was discussed with the patient and/or family members who expressed understanding and agreement. All questions were answered. POD#4 Lap guillermo for acute cholecystitis Admit. IVF. NPO. IV abx. Consult GI for ERCP with stent. Consult IR for percutaneous drainage of biloma. (2) COPD (chronic obstructive pulmonary disease) Current Visit: No Status: Acute OK to continue prednisone Qualifiers: Qualified Code(s): J44.9 - Chronic obstructive pulmonary disease, unspecified (3) Hyperthyroidism Current Visit: No Status: Acute OK to continue levothyroxine (4) CAD (coronary artery disease) Current Visit: No Status: Acute HOLD ASA Qualifiers: Qualified Code(s): I25.10 - Atherosclerotic heart disease of [place] coronary artery without angina pectoris History of Present Illness Chief complaint: abdominal pain HPI: Ms. Berman is a 78 year old female who presents with diffuse abdominal pain POD#4 lap guillermo. Pt nausea, vomiting and abdominal distension. She reports coffee ground appearance of emesis. She report no BM since before surgery. Denies fever. Past Med Surg Social Fam HX - Past Medical History Medical history: aortic aneurysm, arthritis, COPD, coronary artery disease, GERD, thyroid disease Psychiatric history: no psych history - Past Surgical History Surgical History: angioplasty/stent Additional surgical history: cardiac stent x1 - Social History Smoking Status: Former smoker Smokeless Tobacco Status: No Alcohol use: none Drug use: none Medications and Allergies Aspirin 325 mg PO DAILY 05/15/18 [History] Calcium Carbonate [Calcium] 500 mg PO DAILY 05/15/18 [History] Cholecalciferol (Vitamin D3) [Vitamin D3] 2,000 unit PO DAILY 05/15/18 [History] Folic Acid 1 mg PO DAILY 05/15/18 [History] Levothyroxine [Synthroid] 100 mcg PO DAILY 05/15/18 [History] Methotrexate [Otrexup] 10 mg PO FR 05/15/18 [History] predniSONE [PredniSONE] 5 mg PO DAILY 05/15/18 [History] raNITIdine HCl [Zantac] 150 mg PO BID PRN 05/15/18 [History] Docusate Sodium [Colace] 100 mg PO BID PRN #30 capsule 11/16/18 [Rx] OxyCODONE Immed Rel [Roxicodone 5 MG] 5 mg PO Q6HR PRN 5 Days #20 tablet 11/16/18 [Rx] Ibuprofen [Ibu-200] 200 mg PO Q6HR PRN 11/19/18 [History] Allergy/AdvReac Type Severity Reaction Status Date / Time No Known Allergies Allergy Verified 05/15/18 14:08 Review of Systems All systems PM: The remainder of the systems were reviewed and are negative - Constitutional as per HPI, anorexia, no chills, no fatigue, no fever(s), no snoring, no weakness - EENT Nose, mouth and throat: dry mouth, no dizziness, no nasal congestion, no nasal discharge, no sinus pain, no sinus pressure, no sore throat - Cardiovascular no chest pain, no diaphoresis, no dyspnea, no edema - Respiratory no cough, no dyspnea, no wheezing - Gastrointestinal abdominal pain, bloating, coffee ground emesis, constipation, cramping, no diarrhea, no hematemesis, no hematochezia, no melena - Genitourinary Genitourinary: flank pain, no dysuria, no urinary frequency - Musculoskeletal no back pain, no joint swelling, no limited range of motion, no neck pain - Integumentary no dry skin, no pruritus, no swelling, no jaundice - Neurological no confusion, no dizziness, no focal weakness - Psychiatric no anxiety, no depression - Endocrine no fatigue - Hematologic/Lymphatic no easy bleeding, no easy bruising General Surgery Exam Initial Vital Signs Temp Pulse Resp BP Pulse Ox 98.1 F 96 18 113/65 92 11/19/18 10:41 11/19/18 10:41 11/19/18 10:41 11/19/18 10:41 11/19/18 10:41 - General physical appearance moderate distress, moderate pain. negative: jaundice - Eyes PERRL, normal ocular movement. negative: icteric - ENT no congestion, dry mucosa. negative: nasal discharge - Neck no masses, trachea midline, no venous distension - Respiratory normal respiratory effort, clear to auscultation - Cardiovascular Cardiovascular exam: Present: RRR. Absent: JVD - Abdomen Abdomen general surgery: Present: bowel sounds present, soft, distended, tender, guarding. Absent: rebound Abdominal Tenderness: Present: diffusely - Incision Incision: Present: clean and dry, intact - Genitourinary Present: normal external genitalia - Integumentary Integumentary general surgery: Present: warm and dry - Neurologic Present: CN 2-12 grossly intact, normal coordination - Musculoskeletal Present: normal posture - Psychiatric Psychiatric general surgery: Present: A&Ox3, appropriate Results - Labs 11/19/18 11:02 11/19/18 11:02 Abnormal lab results WBC 14.8 K/mcL (4.3-11.1) H 11/19/18 11:02 RDW 14.7 % (11.5-14.5) H 11/19/18 11:02 Band Neutrophils % 33.0 % (0-4) H 11/19/18 11:02 Neutrophils # 13.3 K/mcL (1.6-8.9) H 11/19/18 11:02 Nucleated RBCs/100 WBC 0.1 /100 WBC (0) H 11/19/18 11:02 PT 14.2 Seconds (9.4-12.1) H 11/19/18 11:02 Sodium 133 mEq/L (136-145) L 11/19/18 11:02 Chloride 97 mEq/L (98-107) L 11/19/18 11:02 BUN/Creatinine Ratio 28 (6-26) H 11/19/18 11:02 Glucose 149 mg/dL (70-105) H 11/19/18 11:02 Total Bilirubin 1.4 mg/dL (0.3-1.0) H 11/19/18 11:02 Direct Bilirubin 0.8 mg/dL (0.0-0.2) H 11/19/18 11:02 Serum Total Protein 6.3 g/dL (6.4-8.9) L 11/19/18 11:02 Albumin 2.9 g/dL (3.5-5.7) L 11/19/18 11:02 Albumin/Globulin Ratio 0.9 (1.1-2.2) L 11/19/18 11:02 Lipase 3 Units/L (11-82) L 11/19/18 11:02 Urine Color [place] (Yellow) A 11/19/18 13:00 Ur Specific [place] 1.028 (1.010-1.025) H 11/19/18 13:00 Urine Protein 100 mg/dL (Neg-Trace) H 11/19/18 13:00 Urine Ketones Trace mg/dL (Negative) H 11/19/18 13:00 Urine Blood Trace (Negative) H 11/19/18 13:00 Urine Bilirubin Moderate (Negative) H 11/19/18 13:00 Urine Urobilinogen 2.0 mg/dL (Normal) H 11/19/18 13:00 Ur Leukocyte Esterase Trace (Negative) H 11/19/18 13:00 Ur Squamous Epith Cells Many per lpf (None-Few) H 11/19/18 13:00 Urine Yeast Few per hpf (None Seen) H 11/19/18 13:00 Ur Culture Indicated? YES (NO) A 11/19/18 13:00 Diabetes panel 11/19/18 11/19/18 Range/Units 11:02 11:02 Sodium 133 L (136-145) mEq/L Potassium 4.1 (3.5-5.1) mEq/L Chloride 97 L (98-107) mEq/L Carbon Dioxide 28 (23-29) mEq/L BUN 23 (8-23) mg/dL Creatinine 0.83 (0.60-1.20) mg/dL Glucose 149 H (70-105) mg/dL Calcium 9.3 (8.6-10.3) mg/dL AST 18 (13-39) Units/L ALT 21 (7-52) Units/L Alkaline Phosphatase 101 (34-104) Units/L Albumin 2.9 L (3.5-5.7) g/dL Calcium panel 11/19/18 11/19/18 Range/Units 11:02 11:02 Calcium 9.3 (8.6-10.3) mg/dL Albumin 2.9 L (3.5-5.7) g/dL Pituitary panel 11/19/18 Range/Units 11:02 Sodium 133 L (136-145) mEq/L Potassium 4.1 (3.5-5.1) mEq/L Chloride 97 L (98-107) mEq/L Carbon Dioxide 28 (23-29) mEq/L BUN 23 (8-23) mg/dL Creatinine 0.83 (0.60-1.20) mg/dL Glucose 149 H (70-105) mg/dL Calcium 9.3 (8.6-10.3) mg/dL Adrenal panel 11/19/18 11/19/18 Range/Units 11:02 11:02 Sodium 133 L (136-145) mEq/L Potassium 4.1 (3.5-5.1) mEq/L Chloride 97 L (98-107) mEq/L Carbon Dioxide 28 (23-29) mEq/L BUN 23 (8-23) mg/dL Creatinine 0.83 (0.60-1.20) mg/dL Glucose 149 H (70-105) mg/dL Calcium 9.3 (8.6-10.3) mg/dL Total Bilirubin 1.4 H (0.3-1.0) mg/dL AST 18 (13-39) Units/L ALT 21 (7-52) Units/L Alkaline Phosphatase 101 (34-104) Units/L Albumin 2.9 L (3.5-5.7) g/dL All other labs normal. - Imaging CT scan - abdomen: image reviewed (ascites in Cox's pouch, GB fossa and right pericolic gutter; possible bile leak) CT scan - chest: image reviewed Additional studies: Hida scan revals bile leak
[2018-11-19] MEDS: Ondansetron 4 MG/2 ML VIAL IVP PRN (23:48)
[2018-11-19] MEDS: Acetaminophen IV 1,000 MG/100 ML INFUS..BTL IVPB SCH (23:55)
[2018-11-20] MEDS: Piperacillin/Tazobactam 3.375 GM in 0.9 % Sodium Chloride Mini Bag 100 ML IVPB SCH ×3 (00:11→13:41)
[2018-11-20] MEDS: 0.9 % Sodium Chloride 1,000 ML IVC SCH ×3 (00:36→13:43)
[2018-11-20] MEDS: Acetaminophen IV 1,000 MG/100 ML INFUS..BTL IVPB SCH ×3 (06:04→16:28)
[2018-11-20] MEDS: *HR* Heparin 5,000 UNIT/ML VIAL SQ SCH ×2 (06:11→16:23)
[2018-11-20] MEDS: predniSONE 5 MG TABLET PO SCH (07:58)
[2018-11-20] MEDS ORDERED: 0.9 % Sodium Chloride 500 ML ONE (08:02)
[2018-11-20] MEDS ORDERED: *HR* FentaNYL (PF) 100 MCG/2 ML VIAL IVP ONE (08:23)
[2018-11-20] MEDS ORDERED: *HR* Midazolam HCl 2 MG/2 ML VIAL IVP ONE (08:23)
--- NOTE | 2018-11-20 08:23 | Anesthesia Evaluation PreOp ---
Date of Encounter: 11/20/18 Time of Encounter: 08:21 - Past History Planned Operation: ERCP Cardiac History: Cardiac Stent (x 1 09/2009), Other (PVD, aortic aneurysm) Pulmonary History: Former smoker, COPD [employer] History: Denies Any Significant HX Other Medical History: Thyroid (hypo), GERD, Other (RA, POD#4 Lap guillermo for acute cholecystitis now with bile leak) Anesthesia History: No Prior Anesthetic Complications, Past Anesthesia (guillermo) : No Alcohol Use: none Drug use: none Medications and Allergies Aspirin 325 mg PO DAILY 05/15/18 [History] Calcium Carbonate [Calcium] 500 mg PO DAILY 05/15/18 [History] Cholecalciferol (Vitamin D3) [Vitamin D3] 2,000 unit PO DAILY 05/15/18 [History] Folic Acid 1 mg PO DAILY 05/15/18 [History] Levothyroxine [Synthroid] 100 mcg PO DAILY 05/15/18 [History] Methotrexate [Otrexup] 10 mg PO FR 05/15/18 [History] predniSONE [PredniSONE] 5 mg PO DAILY 05/15/18 [History] raNITIdine HCl [Zantac] 150 mg PO BID PRN 05/15/18 [History] Docusate Sodium [Colace] 100 mg PO BID PRN #30 capsule 11/16/18 [Rx] OxyCODONE Immed Rel [Roxicodone 5 MG] 5 mg PO Q6HR PRN 5 Days #20 tablet 11/16/18 [Rx] Ibuprofen [Ibu-200] 200 mg PO Q6HR PRN 11/19/18 [History] Allergy/AdvReac Type Severity Reaction Status Date / Time No Known Allergies Allergy Verified 05/15/18 14:08 - Meds/Allergy Pre-op Review Medications Reviewed: Yes Allergies Reviewed: Yes Beta Blockers on Current Med List: No Anesthesia Results - Labs 11/19/18 11:02 11/19/18 11:02 - Imaging EKG: report reviewed (Sinus rhythm Borderline low voltage, extremity leads) Additional studies: 11/2018 echocardiogram Impressions: LVEF 65-70%. Mild left ventricular diastolic dysfunction. Normal right ventricular structure and function. Mild aortic regurgitation. Mild tricuspid regurgitation. No pulmonary hypertension. Left Ventricular Wall Motion: Rest Echo Findings All wall segments showed normal motion. Findings: Study Quality * Technically adequate exam. ECG Findings * Normal sinus rhythm. Left Ventricle * LVEF 65-70%. * Normal LV chamber size, wall thickness and systolic function. * Mild left ventricular diastolic dysfunction. Right Ventricle * Normal right ventricular structure and function. Left Atrium * Normal left atrial size. Right Atrium * Normal right atrial size. Interatrial Septum * Interatrial septum not well evaluated. Aortic Valve * Trileaflet aortic valve. * Mildly calcified aortic valve leaflets. * Mild aortic regurgitation. * No aortic stenosis. Mitral Valve * Normal mitral valve structure. * No mitral stenosis. * Trace mitral regurgitation. Tricuspid Valve * Normal tricuspid valve structure. * No tricuspid stenosis. * Mild tricuspid regurgitation. * Estimated RVSP is 32 mmHg. * Estimated RA pressure is 3 mmHg. * No pulmonary hypertension. Pulmonic Valve * Pulmonic valve is not well visualized. * No pulmonic stenosis. * No pulmonic regurgitation. Aorta * Normally sized aortic root. Pericardium * The pericardium appears normal. IVC * The IVC is not dilated. * > 50% respiratory change Anesthesia Exam Vital Signs/O2 Sat/Glucose, Most Recent Temp Pulse Resp BP Pulse Ox 97.6 F 76 16 104/62 98 11/20/18 07:32 11/20/18 07:32 11/20/18 07:32 11/20/18 07:32 11/20/18 07:32 Blood Glucose* 113 Weight: 75 kg NPO (# of Hours): > 8hr - HEENT Pupil (Motor): Pupils equal Mallampati: II Teeth: Edentulous - [employer]ATOR LOC: Oriented [employer] Motor: Normal RUE, Normal LUE, Normal RLE, Normal LLE, Normal Face [employer] Sensory: Normal: RUE, LUE, RLE, LLE, Face - Cardiac Rhythm: Regular Murmur: None - Pulmonary Breath Sounds: bilateral Clear Respiratory Effort: Symmetrical Anesthesia Assess/Plan ASA Score: 3 (CAD, PVD, COPD) Level of consciousness: Cooperative, Oriented Anesthetic Plan: General Monitoring Plan: Standard Monitors Recovery Plan: PACU
[2018-11-20] MEDS: Ondansetron 4 MG/2 ML VIAL IVP PRN (08:30)
--- NOTE | 2018-11-20 08:33 | Pre-Sedation Evaluation ---
Pre-sedation evaluation - Pre-sedation checklist Date of procedure: 11/20/18 Procedure: biloma drain Recent Vitals: Last Vital Signs Temp 97.6 F 11/20/18 07:32 Pulse 76 11/20/18 07:32 Resp 16 11/20/18 07:32 BP 104/62 11/20/18 07:32 Pulse Ox 98 11/20/18 07:32 Airway Assessment: Patient can open mouth completely, TMJ function normal, Micrognathia (under-bite, receding chin) absent, Neck with adequate range of motion ASA Classification *see protocol: CLASS II-Mild systemic disease Plan of Care: Pt appropriate candidate for procedure/moderate/conscious sedation, Risks/benefits of procedure/sedation discussed w/ patient/family, If not NPO; Risk of intake outweiged by necessity to perform procedure
--- NOTE | 2018-11-20 08:51 | IR Procedure Note ---
Date of procedure: 11/20/18 Consent Obtained: Verbal consent, Written consent Timeout: Correct patient and procedure verified, Correct site verified, Time out performed, Skin prep completed Local anesthetic: Lidocaine 1% Was there an visitor services information assistant present: No Estimated blood loss (cc): 1 Complications: None; Tolerated procedure well Procedure Performed: CT guided drain placement into a GB fossa fluid collection Specimen: 120 cc brown fluid aspirated
--- NOTE | 2018-11-20 09:46 | AcuteCareSurgery Progress Note ---
Date of Encounter: 11/20/18 Time of Encounter: 07:30 - Assessment and Plan (1) Bile leak Current Visit: Yes Status: Acute The patient will undergo the IR drain of the bile ascites as well as ERCP today to normalize the pressure and biliary system. Continue supportive care. Subjective Narrative: The patient has and identified postoperative bile leak with bile peritonitis. She will undergo interventional radiology drainage of the bile ascites followed by ERCP to normalize the pressure in the biliary system. The patient complains of diffuse abdominal pain worse in the right upper quadrant pain is being ad equately treated. IR drain and ERCP today Objective Vital Signs - Last 8 Hours Temp Pulse Resp BP Pulse Ox 11/20/18 08:46 88 24 104/69 97 11/20/18 08:40 89 24 108/65 97 11/20/18 08:33 86 24 101/57 11/20/18 07:32 97.6 F 76 16 104/62 98 11/20/18 03:46 97.6 F 86 14 123/63 96 Intake and Output 11/19/18 11/20/18 11/20/18 23:59 07:59 15:59 Intake Total 1300 / 1300 Output Total 150 / 150 Balance 1150 / 1150 Intake: IV Fluids 1300 / 1300 0.9 % Sodium Chloride 1,000 ML 1000 / 1000 @ 125 mls/hr IVC .Q8H [facility] Rx#: [id number] Ofirmev 1,000 mg/100 ml 1,000 200 / 200 mg In 100 ml @ 400 mls/hr IVPB Q6HR [facility] Rx#:[id number] Zosyn 3.375 GM In 0.9 % Sodium 100 / 100 Chloride (Mini-Bag +) 100 ML @ 25 mls/hr IVPB Q6HR [facility] Rx#: [id number] Output: Urine 150 / 150 Other: Meal npo Weight 75.1 kg Blood Glucose* 113 Patient Weight 11/20/18 23:59 Weight 75.1 kg - General physical appearance well developed, well nourished, moderate pain - Respiratory normal expansion, normal respiratory effort, clear to percussion - Cardiovascular Cardiovascular exam: Present: RRR, no murmurs/rubs/gallops - Abdomen Abdomen: Present: bowel sounds present, tender Abdominal Tenderness: diffusely - Neurologic CN 2-12 grossly intact, normal coordination, normal sensation - Psychiatric oriented to time, oriented to person, oriented to place, speech is normal, memory intact - Labs 11/19/18 11:02 11/19/18 11:02 Diabetes panel 11/19/18 11/19/18 Range/Units 11:02 11:02 Sodium 133 L (136-145) mEq/L Potassium 4.1 (3.5-5.1) mEq/L Chloride 97 L (98-107) mEq/L Carbon Dioxide 28 (23-29) mEq/L BUN 23 (8-23) mg/dL Creatinine 0.83 (0.60-1.20) mg/dL Glucose 149 H (70-105) mg/dL Calcium 9.3 (8.6-10.3) mg/dL AST 18 (13-39) Units/L ALT 21 (7-52) Units/L Alkaline Phosphatase 101 (34-104) Units/L Albumin 2.9 L (3.5-5.7) g/dL Calcium panel 11/19/18 11/19/18 Range/Units 11:02 11:02 Calcium 9.3 (8.6-10.3) mg/dL Albumin 2.9 L (3.5-5.7) g/dL Pituitary panel 11/19/18 Range/Units 11:02 Sodium 133 L (136-145) mEq/L Potassium 4.1 (3.5-5.1) mEq/L Chloride 97 L (98-107) mEq/L Carbon Dioxide 28 (23-29) mEq/L BUN 23 (8-23) mg/dL Creatinine 0.83 (0.60-1.20) mg/dL Glucose 149 H (70-105) mg/dL Calcium 9.3 (8.6-10.3) mg/dL Adrenal panel 11/19/18 11/19/18 Range/Units 11:02 11:02 Sodium 133 L (136-145) mEq/L Potassium 4.1 (3.5-5.1) mEq/L Chloride 97 L (98-107) mEq/L Carbon Dioxide 28 (23-29) mEq/L BUN 23 (8-23) mg/dL Creatinine 0.83 (0.60-1.20) mg/dL Glucose 149 H (70-105) mg/dL Calcium 9.3 (8.6-10.3) mg/dL Total Bilirubin 1.4 H (0.3-1.0) mg/dL AST 18 (13-39) Units/L ALT 21 (7-52) Units/L Alkaline Phosphatase 101 (34-104) Units/L Albumin 2.9 L (3.5-5.7) g/dL Consult Discharge Plan - Plan Referrals: Jason Castro MD [Primary Care Provider] -
--- NOTE | 2018-11-20 10:15 | Gastroenterology Consult Note ---
<Anthony Herrera Sarah - Last Filed: 11/20/18 10:11> Date of Encounter: 11/20/18 Time of Encounter: 10:11 - Assessment and plan (1) Bile leak Current Visit: Yes Status: Acute Assessment and plan: Patient had cholecystectomy performed 5 days ago without complication Patient returned to ED yesterday due to worsened abdominal pain, coffee-ground emesis, constipation Labs significant for mild leukocytosis, mild hyperbilirubinemia, otherwise hemodynamically stable Imaging demonstrated subhepatic bile leak, acute care surgery/interventional radiology/gastroenterology consultations requested IR placed a biliary drain this morning, ERCP with stent placement planned for today, patient currently on Zosyn and supportive care ERCP will address bile leak as well as any evidence of other upper gastrointestinal pathology including bleed if present Anticipate several days of recovery and medical management after procedures today Further recommendations per Dr. Tomlin (2) Status post cholecystectomy Current Visit: Yes Status: Acute - Time Spent With Patient Total time spent is greater than 50% in coordination of care (as documented) at patient's floor/unit and/or counseling patient: GI History of Present Illness - Data of Consult Patient: new to practice Consult date: 11/20/18 Requesting Physician: Lenin Castro - Consult Narrative Reason for consult: bile leak History of present illness: Ms. Berman is a 78 year old female with a past medical history of aortic aneurysm, osteoarthritis, COPD, CAD, GERD. She underwent cholecystectomy 4 days ago without complication. She can return to the emergency department yesterday for abdominal pain, coffee-ground emesis and constipation. Acute-care surgery was consulted and CT of the abdomen and biliary nuclear scan were completed. Imaging demonstrated bile leak with accumulating biloma, labs demonstrated mild leukocytosis and mild hyperbilirubinemia. IR consultation was requested for biliary drain placement and gastroenterology consultation was requested for ERCP and biliary stent placement. Drain placement took place this morning without complication. On my evaluation patient and family confirm above history. Patient is complaining of constipation, abdominal distention and right upper quadrant abdominal pain. She denies any fever or chills, nausea or vomiting c urrently. I explained to the patient and family present the plan for ERCP and stent placement. I explained the procedure including risks and benefits. They stated they understood and agreed with the plan of care. Past Med Surg Social Fam HX - Past Medical History Medical history: aortic aneurysm, arthritis, COPD, coronary artery disease, GERD, thyroid disease Psychiatric history: no psych history - Past Surgical History Surgical History: angioplasty/stent Additional surgical history: cardiac stent x1 - Social History Smoking Status: Former smoker Smokeless Tobacco Status: No Alcohol use: none Drug use: none All systems PM: reviewed and no additional remarkable complaints except as stated - Constitutional Vitals: Temp Pulse Resp BP Pulse Ox 97.6 F 88 24 104/69 97 11/20/18 07:32 11/20/18 08:46 11/20/18 08:46 11/20/18 08:46 11/20/18 08:46 General appearance: Present: mild distress (Patient appears uncomfortable), A&O X 3 (Patient is alert and oriented however is very hard of hearing making conversation difficult) - Eye Eye exam: Present: EOMI, PERRL - Respiratory Respiratory exam: Present: CTAB - Cardiovascular Cardiovascular exam: Present: RRR - GI/Abdominal GI/Abdominal exam: Present: distended, firm, guarding, tenderness (Significant right upper quadrant tenderness, moderate diffuse abdominal tenderness). Absent: rigid - Extremities Exam Extremities exam: Present: radial pulses palpable and symmetrical - Skin Skin exam: Present: dry, warm Results - Labs CBC & Chem 7: 11/19/18 11:02 11/19/18 11:02 - ABG ABG results: PT/INR, D-dimer PT 14.2 Seconds (9.4-12.1) H 11/19/18 11:02 - Impressions Impressions Chest X-Ray 11/19/18 10:48 IMPRESSION: No acute findings. D/ / 11/19/2018 12:28:30 Corwin Cameron MD / Sangita Stewart Interpreting Provider: Corwin Cameron MD Abdomen/Pelvis CT 11/19/18 11:00 IMPRESSION: Ascites seen within the abdomen and pelvis most prominently around the gallbladder fossa region. The patient had recent gallbladder surgery. This may be secondary to the surgery. I do not see any definitive evidence for abscess however this may also be related to a possible biliary leak and if further evaluation is needed I would recommend hepatobiliary scan. D/ / 11/19/2018 12:21:56 Timmy Reilly MD / fabi Interpreting Provider: Timmy Reilly MD Bile Acid Absorption NM 11/19/18 13:03 IMPRESSION: 1. No activity in the gallbladder consistent with cholecystectomy. 2. Abnormal radiotracer accumulation in the subhepatic space on the right side with extension minimally into the right pericolic gutter, abnormal, consistent with bile leak. There is also reflux of radiotracer into the stomach. Critical results were called by Dr. Zoe Garcia MD to Aidan Cortez DO on 11/19/2018 at 14:54. D/ / 11/19/2018 14:57:11 Zoe Garcia MD / fabi Interpreting Provider: Zoe Garcia MD Consult Discharge Plan - Plan Referrals: Jason Castro MD [Primary Care Provider] - <Jazmin Tomlined - Last Filed: 11/20/18 13:21> Date of Encounter: 11/20/18 - Time Spent With Patient Total time spent is greater than 50% in coordination of care (as documented) at patient's floor/unit and/or counseling patient: GI History of Present Illness - Data of Consult Requesting Physician: Lenin Castro - Consult Narrative History of present illness: Ms. Berman is a 78 year old female - Constitutional Vitals: Temp Pulse Resp BP Pulse Ox 97.3 F L 92 10 131/59 95 11/20/18 13:14 11/20/18 13:14 11/20/18 13:14 11/20/18 13:14 11/20/18 13:14 Results - Labs CBC & Chem 7: 11/19/18 11:02 11/19/18 11:02 - ABG ABG results: PT/INR, D-dimer PT 14.2 Seconds (9.4-12.1) H 11/19/18 11:02 - Impressions Impressions Chest X-Ray 11/19/18 10:48 IMPRESSION: No acute findings. D/ / 11/19/2018 12:28:30 Corwin Cameron MD / Sangita Stewart Interpreting Provider: Corwin Cameron MD Bile Acid Absorption NM 11/19/18 13:03 IMPRESSION: 1. No activity in the gallbladder consistent with cholecystectomy. 2. Abnormal radiotracer accumulation in the subhepatic space on the right side with extension minimally into the right pericolic gutter, abnormal, consistent with bile leak. There is also reflux of radiotracer into the stomach. Critical results were called by Dr. Zoe Garcia MD to Aidan Cortez DO on 11/19/2018 at 14:54. D/ / 11/19/2018 14:57:11 Zoe Garcia MD / fabi Interpreting Provider: Zoe Garcia MD Retroperitoneal Abscess Drainage 11/20/18 00:00 IMPRESSION: Successful CT guided placement of pigtail drain into a gallbladder fossa fluid collection. D/ / Solomon Mendez MD / Solomon Mendez MD Interpreting Provider: Solomon Mendez MD Cath/Invasive Procedure 11/20/18 11:46 IMPRESSION: 1. Fluoroscopy provided intraprocedural E for balloon sweep of the common bile duct and subsequent placement of a biliary stent. Please see the procedure note for further details. D/ / Jairo Langston MD / Jairo Langston MD Interpreting Provider: Jairo Langston MD - Attending Attestation I have personally performed a face to face evaluation on this patient. I have reviewed and agree with the care plan. History and Exam by me shows: Patient seen complaining of pain. Examination: Patient is sick looking has very tender upper abdomen. Assessment: Patient with the bile leak with bile peritonitis and biloma. Rec: She is getting a JASKARAN drain placement done by IR and then she will have an ERCP.
[2018-11-20] MEDS ORDERED: Dexamethasone 4 MG/ML VIAL ONE (10:30)
[2018-11-20] MEDS ORDERED: *HR* Succinylcholine 200 MG/10 ML VIAL IVP ONE (10:30)
[2018-11-20] MEDS ORDERED: Ondansetron 4 MG/2 ML VIAL ONE (10:30)
[2018-11-20] MEDS ORDERED: Lidocaine -MPF 2% 2 ML VIAL ONE (10:30)
[2018-11-20] MEDS ORDERED: *HR* FentaNYL (PF) 100 MCG/2 ML VIAL ONE (10:30)
[2018-11-20] MEDS ORDERED: *HR* Propofol 200 MG/20 ML VIAL IVP ONE (10:31)
[2018-11-20] MEDS ORDERED: *HR* PHENYLEPHRINE 1,000 MCG/10 ML SYRINGE IVP ONE (10:46)
[2018-11-20] MEDS ORDERED: *HR* Promethazine 25 MG/ML VIAL IVP PRN (12:39)
[2018-11-20] MEDS ORDERED: *HR* Labetalol 20 MG/4 ML SYRINGE IVP PRN (12:39)
[2018-11-20] MEDS ORDERED: *HR* FentaNYL (PF) 100 MCG/2 ML VIAL IVP PRN (12:39)
[2018-11-20] MEDS ORDERED: Ondansetron 4 MG/2 ML VIAL IVP ONE (12:39)
--- NOTE | 2018-11-20 13:21 | Anesthesia Evaluation Post Op ---
Date of Encounter: 11/20/18 Time of Encounter: 13:21 - Vital Signs Vital Signs: Vital Signs/O2 Sat, Most Current Temp Pulse Resp BP Pulse Ox 97.3 F L 92 10 131/59 95 11/20/18 13:14 11/20/18 13:14 11/20/18 13:14 11/20/18 13:14 11/20/18 13:14 - Lungs Lungs: Clear Ascult./Percussion - Airway Airway: Non-obstructed - Cardiovascular Regular Rate - Mental Status Mental Status: Asleep with brisk response to light stimulation - Pain Pain Scale: 0 Pain Scale used: Numeric (1 - 10) - Nausea Vomiting Nausea Vomiting: Not Present - Hydration Hydration: NPO, Has not voided - Discharge PostOp Status: Transfer Patient to floor
[2018-11-20] MEDS ORDERED: Acetaminophen IV 1,000 MG/100 ML INFUS..BTL IVPB SCH (21:35)
[2018-11-21] MEDS: Acetaminophen IV 1,000 MG/100 ML INFUS..BTL IVPB SCH ×5 (00:08→23:30)
[2018-11-21] MEDS: Piperacillin/Tazobactam 3.375 GM in 0.9 % Sodium Chloride Mini Bag 100 ML IVPB SCH ×4 (00:08→23:31)
[2018-11-21] MEDS: 0.9 % Sodium Chloride 1,000 ML IVC SCH ×4 (02:12→23:30)
[2018-11-21] MEDS: *HR* Heparin 5,000 UNIT/ML VIAL SQ SCH ×2 (05:27→17:11)
[2018-11-21] MEDS: predniSONE 5 MG TABLET PO SCH (09:00)
--- NOTE | 2018-11-21 10:02 | AcuteCareSurgery Progress Note ---
Date of Encounter: 11/21/18 Time of Encounter: 09:00 - Assessment and Plan (1) Bile leak Current Visit: Yes Status: Acute The patient will undergo the IR drain of the bile ascites as well as ERCP today to normalize the pressure and biliary system. Continue supportive care. The patient is seen and evaluated on morning rounds with the acute care surgery team. She is in moderate pain. Peritoneal drain is in place. She is status post ERCP. We will continue IV antibiotics. Subjective Narrative: The patient is seen and evaluated on morning rounds with the acute care surgery team. She is postoperative bile leak from laparoscopic cholecystectomy with bile peritonitis. Interventional radiology placed a drain for the bile peritonitis in this is draining normally. Gastroenterology performed sphincterotomy and stent placement. This should relieve the pressure and stop the bile leak. Today she is continuing to have pain. We will start her on clear liquid diets check laboratory values to make sure that she is on appropriate antibiotics. Objective Vital Signs - Last 8 Hours Temp Pulse Resp BP Pulse Ox 11/21/18 09:16 98 11/21/18 07:07 98.9 F 76 15 128/68 98 11/21/18 03:46 98.5 F 71 16 122/72 96 Intake and Output 11/20/18 11/21/18 11/21/18 23:59 07:59 15:59 Intake Total 1100 / 3500 1300 / 1300 Output Total 680 / 680 0 / 680 Balance 1100 / 3300 620 / 620 0 / 620 Intake: IV Fluids 1100 / 3500 1300 / 1300 0.9 % Sodium Chloride 1,000 ML 1000 / 3000 1000 / 1000 @ 125 mls/hr IVC .Q8H [facility] Rx#: [id number] Ofirmev 1,000 mg/100 ml 1,000 100 / 300 200 / 200 mg In 100 ml @ 400 mls/hr IVPB Q6HR [facility] Rx#:[id number] Zosyn 3.375 GM In 0.9 % Sodium 100 / 100 Chloride (Mini-Bag +) 100 ML @ 25 mls/hr IVPB Q8HR [facility] Rx#: [id number] Output: Urine 650 / 650 Wound Drainage 30 / 30 0 / 30 Right Abdomen 30 / 30 0 / 30 Other: Meal npo Weight 75.6 kg Blood Glucose* 110 121 Patient Weight 11/21/18 23:59 Weight 75.6 kg - General physical appearance well developed, well nourished, moderate pain - Respiratory normal expansion, normal respiratory effort, clear to auscultation - Cardiovascular Cardiovascular exam: Present: RRR, no murmurs/rubs/gallops - Abdomen Abdomen: Present: bowel sounds present, tender Abdominal Tenderness: diffusely (No guarding or rebound. Peritoneal drain is draining bilious material) - Psychiatric oriented to time, oriented to person, oriented to place, speech is normal, memory intact - Labs 11/19/18 11:02 11/19/18 11:02 Consult Discharge Plan - Plan Referrals: Jason Castro MD [Primary Care Provider] -
[2018-11-22] MEDS: *HR* Heparin 5,000 UNIT/ML VIAL SQ SCH ×2 (06:00→18:35)
[2018-11-22] MEDS: Acetaminophen IV 1,000 MG/100 ML INFUS..BTL IVPB SCH ×4 (06:01→23:21)
[2018-11-22] MEDS: Piperacillin/Tazobactam 3.375 GM in 0.9 % Sodium Chloride Mini Bag 100 ML IVPB SCH ×3 (07:34→23:24)
[2018-11-22] MEDS: 0.9 % Sodium Chloride 1,000 ML IVC SCH ×2 (07:36→15:56)
[2018-11-22] MEDS: predniSONE 5 MG TABLET PO SCH (07:37)
--- NOTE | 2018-11-22 08:06 | AcuteCareSurgery Progress Note ---
Date of Encounter: 11/22/18 Time of Encounter: 07:35 - Assessment and Plan (1) Bile leak Current Visit: Yes Status: Acute The patient will undergo the IR drain of the bile ascites as well as ERCP today to normalize the pressure and biliary system. Continue supportive care. The patient is seen and evaluated on morning rounds with the acute care surgery team. She is in moderate pain. Peritoneal drain is in place. She is status post ERCP. We will continue IV antibiotics. The patient is seen and evaluated on 11/22/2018 on morning rounds with the acute care surgery team. The patient states that she has improvement in her pain. The bilious drainage is falling off with JASKARAN drain 45 mL. The ERCP on Friday recovered leak, bile duct stone which was likely increasing the pressure and biliary system causing the leak. She is doing quite well after surgery and is progressing well. Continue antibiotics. Laboratory evaluation unavailable at time of rounding Subjective Narrative: The patient is seen and evaluated on morning rounds with the acute care surgery team. Her abdominal pain is improved. ERCP on Friday recovered a common bile duct stone which was likely increasing the pressure and biliary system and causing the postoperative bile leak. She does have a intraperitoneal drain to assist with treatment of the bile ascites. Her abdomen is much more soft today with no guarding and no rebound. She is mildly tender in the right upper quadrant. Laboratory testing is pending at time of evaluation. Much improved area Objective Vital Signs - Last 8 Hours Temp Pulse Resp BP Pulse Ox 11/22/18 07:45 98 11/22/18 06:44 97.8 F 63 15 159/69 98 11/22/18 03:54 97.4 F L 60 16 153/84 99 Intake and Output 11/21/18 11/22/18 11/22/18 23:59 07:59 15:59 Intake Total 1300 / 3800 1200 / 1200 Output Total 360 / 1550 460 / 460 Balance 940 / 2250 740 / 740 Intake: IV Fluids 1300 / 3800 1200 / 1200 0.9 % Sodium Chloride 1,000 ML 1000 / 3000 1000 / 1000 @ 125 mls/hr IVC .Q8H [facility] Rx#: [id number] Ofirmev 1,000 mg/100 ml 1,000 200 / 500 100 / 100 mg In 100 ml @ 400 mls/hr IVPB Q6HR [facility] Rx#:[id number] Zosyn 3.375 GM In 0.9 % Sodium 100 / 300 100 / 100 Chloride (Mini-Bag +) 100 ML @ 25 mls/hr IVPB Q8HR [facility] Rx#: [id number] Output: Urine 300 / 1450 400 / 400 Wound Drainage 60 / 100 60 / 60 Right Abdomen 60 / 100 60 / 60 Other: Weight 78.1 kg Patient Weight 11/22/18 23:59 Weight 78.1 kg - General physical appearance well developed, well nourished, moderate pain - Respiratory normal expansion, clear to auscultation - Cardiovascular Cardiovascular exam: Present: RRR, no murmurs/rubs/gallops - Abdomen Abdomen: Present: bowel sounds present, tender Abdominal Tenderness: RUQ (Tenderness much improved compared to yesterday's physical examination. No guarding no rebound) - Incision Incision: Present: clean and dry - Neurologic CN 2-12 grossly intact, normal coordination, normal sensation - Psychiatric oriented to time, oriented to person, oriented to place, speech is normal, memory intact - Labs 11/19/18 11:02 11/19/18 11:02 Consult Discharge Plan - Plan Referrals: Jason Castro MD [Primary Care Provider] -
[2018-11-22 10:15] LABS: Hematocrit 35.3 % (35.3-44.9); Mean Corpuscular HGB Conc 31.2 g/dL (31.6-35.5); Mean Corpuscular Hemoglobin 31.6 pg (28.0-33.3); Mean Corpuscular Volume 101.4 fL (83.0-100.0); Mean Platelet Volume 10.3 fL (9.4-12.4); Platelet Count 293 K/mcL (140-400); Red Blood Count 3.48 M/mcL (3.82-4.97); Red Cell Distribution Width 15.9 % (11.5-14.5); White Blood Count 20.9 K/mcL (4.3-11.1)
[2018-11-22 10:34] LABS: Alanine Aminotransferase 13 Units/L (7-52); Albumin 2.4 g/dL (3.5-5.7); Albumin/Globulin Ratio 0.8 (1.1-2.2); Alkaline Phosphatase 89 Units/L (34-104); Aspartate Amino Transferase 17 Units/L (13-39); BUN/Creatinine Ratio 39 (6-26); Bilirubin,Direct 0.4 mg/dL (0.0-0.2); Bilirubin,Indirect 0.3 mg/dL (0.0-1.2); Bilirubin,Total 0.7 mg/dL (0.3-1.0); Blood Urea Nitrogen 29 mg/dL (8-23); Carbon Dioxide 25 mEq/L (23-29); Chloride 107 mEq/L (98-107); Globulin 2.9 g/dL (2.4-3.5); Glucose 130 mg/dL (70-105); Osmolality,Calculated 296 (280-300); Potassium 4.2 mEq/L (3.5-5.1); Sodium 139 mEq/L (136-145); Total Protein 5.3 g/dL (6.4-8.9); eGFR For African Americans > 60 (> 60); eGFR For Non-African Americans > 60 (> 60)
[2018-11-22] MEDS ORDERED: Furosemide 40 MG in 0.9 % Sodium Chloride 50 ML IV ONE (19:16)
[2018-11-23] MEDS: Acetaminophen IV 1,000 MG/100 ML INFUS..BTL IVPB SCH ×2 (05:22→11:46)
[2018-11-23] MEDS: *HR* Heparin 5,000 UNIT/ML VIAL SQ SCH ×2 (05:23→16:12)
[2018-11-23 06:21] LABS: Hematocrit 36.3 % (35.3-44.9); Hemoglobin 11.3 g/dL (11.5-15.4); Mean Corpuscular HGB Conc 31.1 g/dL (31.6-35.5); Mean Corpuscular Hemoglobin 31.1 pg (28.0-33.3); Platelet Count 283 K/mcL (140-400); Red Blood Count 3.63 M/mcL (3.82-4.97); Red Cell Distribution Width 15.9 % (11.5-14.5)
[2018-11-23 06:38] LABS: Alanine Aminotransferase 13 Units/L (7-52); Albumin 2.6 g/dL (3.5-5.7); Alkaline Phosphatase 86 Units/L (34-104); Aspartate Amino Transferase 19 Units/L (13-39); BUN/Creatinine Ratio 31 (6-26); Bilirubin,Direct 0.3 mg/dL (0.0-0.2); Bilirubin,Indirect 0.4 mg/dL (0.0-1.2); Bilirubin,Total 0.7 mg/dL (0.3-1.0); Blood Urea Nitrogen 22 mg/dL (8-23); Calcium 8.1 mg/dL (8.6-10.3); Carbon Dioxide 28 mEq/L (23-29); Chloride 105 mEq/L (98-107); Globulin 2.7 g/dL (2.4-3.5); Glucose 98 mg/dL (70-105); Osmolality,Calculated 297 (280-300); Potassium 3.8 mEq/L (3.5-5.1); Sodium 142 mEq/L (136-145); Total Protein 5.3 g/dL (6.4-8.9); eGFR For African Americans > 60 (> 60); eGFR For Non-African Americans > 60 (> 60)
[2018-11-23] MEDS: predniSONE 5 MG TABLET PO SCH (08:41)
[2018-11-23] MEDS: Piperacillin/Tazobactam 3.375 GM in 0.9 % Sodium Chloride Mini Bag 100 ML IVPB SCH ×3 (08:41→23:41)
--- NOTE | 2018-11-23 09:24 | Gastroenterology Progress Note ---
<Anthony Herrera Sarah - Last Filed: 11/23/18 09:21> Date of Encounter: 11/23/18 Time of Encounter: 09:21 - Assessment and plan (1) Bile leak Current Visit: Yes Status: Resolved Assessment and plan: Patient had cholecystectomy performed 5 days prior to admission without complication Patient returned to ED due to worsened abdominal pain, coffee-ground emesis, constipation Labs on presentation significant for mild leukocytosis, mild hyperbilirubinemia, otherwise hemodynamically stable Imaging demonstrated subhepatic bile leak, acute care surgery/interventional radiology/gastroenterology consultations requested IR placed a biliary drain, ERCP with stent placement completed, patient currently on Zosyn and supportive care Patient is now significantly recovering, tolerating by mouth intake, bowels are moving, liver enzymes within normal limits I do not anticipate any further gastroenterology intervention this admission Plan for outpatient follow-up and repeat ERCP in 6-8 weeks to remove temporary stent Further recommendations per Dr. Tomlin (2) Status post cholecystectomy Current Visit: Yes Status: Resolved - Time Spent With Patient Total time spent is greater than 50% in coordination of care (as documented) at patient's floor/unit and/or counseling patient: - Subjective Interval history: No acute events overnight. She complains of mild abdominal pressure but no sp ecific pain, she denies nausea or vomiting, she is tolerating by mouth intake well. She also reports her bowels are moving now and that she feels generally improved from onset. I informed her that she was not likely to require any further gastroenterology intervention during this admission and that our plan was to follow-up with her outpatient and repeat ERCP in 6-8 weeks to remove temporary stent. She stated she understood and agreed with the plan of care. - Constitutional Vitals: Temp Pulse Resp BP Pulse Ox 98.2 F 64 18 154/55 98 11/23/18 07:34 11/23/18 07:34 11/23/18 07:34 11/23/18 07:34 11/23/18 07:34 General appearance: Present: A&O X 3 (Patient is alert and oriented however is very hard of hearing making conversation difficult), no acute distress - Eye Eye exam: Present: EOMI, PERRL - Respiratory Respiratory exam: Present: CTAB - Cardiovascular Cardiovascular exam: Present: RRR - GI/Abdominal GI/Abdominal exam: Present: soft, tenderness (Minimal abdominal tenderness, more pressure), no peritoneal signs. Absent: distended, guarding Additional comments: Biliary JASKARAN drain in place with small amount of bilious serous drainage - Extremities Exam Extremities exam: Present: pedal edema (1+ nonpitting bilateral lower extremity edema), radial pulses palpable and symmetrical - Skin Skin exam: Present: dry, warm Results - Labs CBC & Chem 7: 11/23/18 05:58 11/23/18 05:58 Labs: Last Result 11/23/18 05:58 Calcium 8.1 L Entire Visit 11/23/18 11/23/18 05:58 05:58 Hgb 11.3 L Hct 36.3 Total Bilirubin 0.7 AST 19 ALT 13 - ABG ABG results: PT/INR, D-dimer PT 14.2 Seconds (9.4-12.1) H 11/19/18 11:02 Consult Discharge Plan - Plan Referrals: Jason Castro MD [Primary Care Provider] - <Christel Tomlin - Last Filed: 11/23/18 17:04> Date of Encounter: 11/23/18 Time of Encounter: 13:00 - Time Spent With Patient Total time spent is greater than 50% in coordination of care (as documented) at patient's floor/unit and/or counseling patient: - Constitutional Vitals: Temp Pulse Resp BP Pulse Ox 98.5 F 59 16 156/77 95 11/23/18 15:39 11/23/18 15:39 11/23/18 16:25 11/23/18 15:39 11/23/18 16:25 Results - Labs CBC & Chem 7: 11/23/18 05:58 11/23/18 05:58 Labs: Last Result 11/23/18 05:58 Calcium 8.1 L Entire Visit 11/23/18 11/23/18 05:58 05:58 Hgb 11.3 L Hct 36.3 Total Bilirubin 0.7 AST 19 ALT 13 - ABG ABG results: PT/INR, D-dimer PT 14.2 Seconds (9.4-12.1) H 11/19/18 11:02 - Attending Attestation I have personally performed a face to face evaluation on this patient. I have reviewed and agree with the care plan. History and Exam by me shows: Patient seen sitting in the bed. Per patient she is feeling better than before. On examination: Alert and awake not in acute distress. Assessment: Patient with bile leak status post ERCP with stent placement and removal of the CBD stone. Recommendation: Stent removal in 6 week
[2018-11-23] MEDS ORDERED: Furosemide 20 MG/2 ML VIAL IVP ONE (10:26)
--- NOTE | 2018-11-23 10:32 | AcuteCareSurgery Progress Note ---
Date of Encounter: 11/23/18 Time of Encounter: 07:30 - Assessment and Plan (1) Bile leak Current Visit: Yes Status: Resolved S/P drain. S/P ERCP. Advance diet. Continue IV abx. IV lasix and albuterol nebs. Case management for DC planning. (2) COPD (chronic obstructive pulmonary disease) Current Visit: No Status: Acute Qualifiers: Qualified Code(s): J44.9 - Chronic obstructive pulmonary disease, unspecified (3) Hyperthyroidism Current Visit: No Status: Acute (4) CAD (coronary artery disease) Current Visit: No Status: Acute Qualifiers: Qualified Code(s): I25.10 - Atherosclerotic heart disease of [place] coronary artery without angina pectoris Subjective Patient reports: no new complaints, feels better, still having pain, pain is less, tolerating liquids well, no flatus, no bowel movement, afebrile Narrative: s/p IR drainage, s/p ERCP Objective Vital Signs - Last 8 Hours Temp Pulse Resp BP Pulse Ox 11/23/18 07:34 98.2 F 64 18 154/55 98 11/23/18 03:34 98.2 F 65 17 131/56 92 Intake and Output 11/22/18 11/23/18 11/23/18 23:59 07:59 15:59 Intake Total 354 / 2994 200 / 200 Output Total 2105 / 3025 500 / 500 Balance -1751 / -31 -300 / -300 Intake: IV Fluids 354 / 2754 200 / 200 Lasix 40 MG In 0.9 % Sodium 54 / 54 Chloride 50 ML @ 108 mls/hr IV ONCE ONE Rx#:[id number] Ofirmev 1,000 mg/100 ml 1,000 200 / 400 100 / 100 mg In 100 ml @ 400 mls/hr IVPB Q6HR [facility] Rx#:[id number] Zosyn 3.375 GM In 0.9 % Sodium 100 / 300 100 / 100 Chloride (Mini-Bag +) 100 ML @ 25 mls/hr IVPB Q8HR [facility] Rx#: [id number] Oral 0 / 0 Output: Urine 2100 / 2950 500 / 500 Wound Drainage Right Abdomen Other: Stool Size Small Moderate Moderate Stool Consistency formed soft liquid Stool Color Brown Brown Brown # Voids 1 1 # Bowel Movements 1 1 1 - General physical appearance no distress, moderate pain, other (no jaundice) - Eyes PERRL, normal ocular movement - ENT no congestion, dry mucosa - Neck Neck exam: trachea midline, no venous distension - Respiratory wheezing: bilateral, rales: bilateral - Cardiovascular Cardiovascular exam: Present: RRR, JVD - Abdomen Abdomen: Present: bowel sounds present, soft, tender Abdominal Tenderness: RUQ Additional Comments: JASKARAN with bilious output - Incision Incision: Present: clean and dry, intact - Neurologic CN 2-12 grossly intact, normal coordination - Musculoskeletal normal posture - Psychiatric oriented to time, oriented to person, oriented to place - Labs 11/23/18 05:58 11/23/18 05:58 Diabetes panel 11/22/18 11/23/18 Range/Units 09:34 05:58 Sodium 139 142 (136-145) mEq/L Potassium 4.2 3.8 (3.5-5.1) mEq/L Chloride 107 105 (98-107) mEq/L Carbon Dioxide 25 28 (23-29) mEq/L BUN 29 H 22 (8-23) mg/dL Creatinine 0.74 0.72 (0.60-1.20) mg/dL Glucose 130 H 98 (70-105) mg/dL Calcium 8.0 L 8.1 L (8.6-10.3) mg/dL AST 17 19 (13-39) Units/L ALT 13 13 (7-52) Units/L Alkaline Phosphatase 89 86 (34-104) Units/L Albumin 2.4 L 2.6 L (3.5-5.7) g/dL Calcium panel 11/22/18 11/23/18 Range/Units 09:34 05:58 Calcium 8.0 L 8.1 L (8.6-10.3) mg/dL Albumin 2.4 L 2.6 L (3.5-5.7) g/dL Pituitary panel 11/22/18 11/23/18 Range/Units 09:34 05:58 Sodium 139 142 (136-145) mEq/L Potassium 4.2 3.8 (3.5-5.1) mEq/L Chloride 107 105 (98-107) mEq/L Carbon Dioxide 25 28 (23-29) mEq/L BUN 29 H 22 (8-23) mg/dL Creatinine 0.74 0.72 (0.60-1.20) mg/dL Glucose 130 H 98 (70-105) mg/dL Calcium 8.0 L 8.1 L (8.6-10.3) mg/dL Adrenal panel 11/22/18 11/23/18 Range/Units 09:34 05:58 Sodium 139 142 (136-145) mEq/L Potassium 4.2 3.8 (3.5-5.1) mEq/L Chloride 107 105 (98-107) mEq/L Carbon Dioxide 25 28 (23-29) mEq/L BUN 29 H 22 (8-23) mg/dL Creatinine 0.74 0.72 (0.60-1.20) mg/dL Glucose 130 H 98 (70-105) mg/dL Calcium 8.0 L 8.1 L (8.6-10.3) mg/dL Total Bilirubin 0.7 0.7 (0.3-1.0) mg/dL AST 17 19 (13-39) Units/L ALT 13 13 (7-52) Units/L Alkaline Phosphatase 89 86 (34-104) Units/L Albumin 2.4 L 2.6 L (3.5-5.7) g/dL Consult Discharge Plan - Plan Referrals: Jason Castro MD [Primary Care Provider] -
[2018-11-23] MEDS: Ipratropium/Albuterol Neb 3 ML IH SCH ×3 (11:12→21:58)
[2018-11-23] MEDS ORDERED: Acetaminophen 325 MG TABLET PO PRN (18:00)
[2018-11-24] MEDS: Ipratropium/Albuterol Neb 3 ML IH SCH ×3 (04:10→16:02)
[2018-11-24] MEDS: *HR* Heparin 5,000 UNIT/ML VIAL SQ SCH (05:44)
[2018-11-24 06:35] LABS: Hematocrit 35.3 % (35.3-44.9); Hemoglobin 11.6 g/dL (11.5-15.4); Mean Corpuscular HGB Conc 32.9 g/dL (31.6-35.5); Mean Corpuscular Hemoglobin 31.4 pg (28.0-33.3); Mean Corpuscular Volume 95.4 fL (83.0-100.0); Mean Platelet Volume 10.2 fL (9.4-12.4); Platelet Count 322 K/mcL (140-400); Red Cell Distribution Width 15.5 % (11.5-14.5); White Blood Count 13.8 K/mcL (4.3-11.1)
[2018-11-24 06:59] LABS: Alanine Aminotransferase 12 Units/L (7-52); Albumin 2.3 g/dL (3.5-5.7); Albumin/Globulin Ratio 0.9 (1.1-2.2); Alkaline Phosphatase 75 Units/L (34-104); Aspartate Amino Transferase 17 Units/L (13-39); BUN/Creatinine Ratio 24 (6-26); Bilirubin,Direct 0.3 mg/dL (0.0-0.2); Bilirubin,Indirect 0.3 mg/dL (0.0-1.2); Bilirubin,Total 0.6 mg/dL (0.3-1.0); Blood Urea Nitrogen 14 mg/dL (8-23); Calcium 7.6 mg/dL (8.6-10.3); Carbon Dioxide 30 mEq/L (23-29); Chloride 100 mEq/L (98-107); Globulin 2.7 g/dL (2.4-3.5); Glucose 114 mg/dL (70-105); Osmolality,Calculated 289 (280-300); Potassium 3.3 mEq/L (3.5-5.1); Sodium 139 mEq/L (136-145); eGFR For African Americans > 60 (> 60); eGFR For Non-African Americans > 60 (> 60)
[2018-11-24] MEDS: Piperacillin/Tazobactam 3.375 GM in 0.9 % Sodium Chloride Mini Bag 100 ML IVPB SCH ×2 (10:29→15:24)
[2018-11-24] MEDS: predniSONE 5 MG TABLET PO SCH (10:29)
[2018-11-24] MEDS ORDERED: Potassium Chloride 40 MEQ, Lidocaine 1% 2 ML in D5% in Water 500 ML IVPB ONE (11:11)
--- NOTE | 2018-11-24 11:17 | AcuteCareSurgery Progress Note ---
<Odalis Zendejas - Last Filed: 11/24/18 11:13> Date of Encounter: 11/24/18 Time of Encounter: 07:45 - Assessment and Plan (1) Bile leak Current Visit: Yes Status: Resolved S/P IR drain and ERCP. Labs and pain improved. Significant decrease in drain output, but still with small amount of bile staining. Continue drain PT/OT pending; surgery recommends rehab/SNF and patient is agreeable. Placement pending PT/OT eval. SW following. Can d/c when placement is in place. Regular diet Saline lock IV Activity per therapy GI and DVT prophylaxis (2) Rheumatoid arthritis Current Visit: No Status: Chronic continue home meds; methotrexate held 2/ to Zosyn. Pt will be able to resume methotrexate at d/c as she is not expected to need po ATBX. Qualifiers: Rheumatoid arthritis location: hand Rheumatoid factor presence: unspecified presence Laterality: unspecified laterality Qualified Code(s): M06.9 - Rheumatoid arthritis, unspecified (3) COPD (chronic obstructive pulmonary disease) Current Visit: No Status: Acute continue home meds aggressive pulm toileting Qualifiers: Qualified Code(s): J44.9 - Chronic obstructive pulmonary disease, unspecified (4) Hypokalemia Current Visit: Yes Status: Acute K repleted 11/24/2018 Subjective Patient reports: no new complaints, feels better, pain is less, tolerating a regular diet, voiding w/o difficulty, flatus, bowel movement, afebrile Objective Vital Signs - Last 8 Hours Temp Pulse Resp BP Pulse Ox 11/24/18 10:36 92 11/24/18 09:35 17 92 11/24/18 06:30 97.6 F 74 16 154/87 95 11/24/18 04:10 18 94 11/24/18 03:27 97.7 F 67 20 160/90 94 Intake and Output 11/23/18 11/24/18 11/24/18 23:59 07:59 15:59 Intake Total 220 / 520 100 / 100 Output Total 300 / 810 0 / 0 Balance -80 / -290 100 / 100 0 / 100 Intake: IV Fluids 100 / 400 100 / 100 Zosyn 3.375 GM In 0.9 % Sodium 100 / 300 100 / 100 Chloride (Mini-Bag +) 100 ML @ 25 mls/hr IVPB Q8HR [facility] Rx#: [id number] Oral 120 / 120 Output: Urine 300 / 800 Wound Drainage 0 / 0 Right Abdomen 0 / 0 Other: Meal Dinner Percent of Meal Consumed 25% Stool Size Moderate Stool Consistency liquid Stool Characteristics Normal for Patient Stool Color Brown Weight 77.9 kg Patient Weight 11/24/18 23:59 Weight 77.9 kg - General physical appearance well nourished, no distress - ENT atraumatic, normocephalic - Neck Neck exam: trachea midline - Respiratory normal expansion, normal respiratory effort - Cardiovascular Cardiovascular exam: Present: RRR - Abdomen Abdomen: Present: bowel sounds present, soft, tender (Expected postoperative), wound (Pigtail catheter site unremarkable. Bilious drainage noted) Hernia: none - Integumentary no rash - Neurologic normal sensation - Musculoskeletal normal posture - Psychiatric oriented to time, oriented to person, oriented to place, speech is normal - Labs 11/24/18 06:12 11/24/18 06:12 Diabetes panel 11/24/18 Range/Units 06:12 Sodium 139 (136-145) mEq/L Potassium 3.3 L (3.5-5.1) mEq/L Chloride 100 (98-107) mEq/L Carbon Dioxide 30 H (23-29) mEq/L BUN 14 (8-23) mg/dL Creatinine 0.58 L (0.60-1.20) mg/dL Glucose 114 H (70-105) mg/dL Calcium 7.6 L (8.6-10.3) mg/dL AST 17 (13-39) Units/L ALT 12 (7-52) Units/L Alkaline Phosphatase 75 (34-104) Units/L Albumin 2.3 L (3.5-5.7) g/dL Calcium panel 11/24/18 Range/Units 06:12 Calcium 7.6 L (8.6-10.3) mg/dL Albumin 2.3 L (3.5-5.7) g/dL Pituitary panel 11/24/18 Range/Units 06:12 Sodium 139 (136-145) mEq/L Potassium 3.3 L (3.5-5.1) mEq/L Chloride 100 (98-107) mEq/L Carbon Dioxide 30 H (23-29) mEq/L BUN 14 (8-23) mg/dL Creatinine 0.58 L (0.60-1.20) mg/dL Glucose 114 H (70-105) mg/dL Calcium 7.6 L (8.6-10.3) mg/dL Adrenal panel 11/24/18 Range/Units 06:12 Sodium 139 (136-145) mEq/L Potassium 3.3 L (3.5-5.1) mEq/L Chloride 100 (98-107) mEq/L Carbon Dioxide 30 H (23-29) mEq/L BUN 14 (8-23) mg/dL Creatinine 0.58 L (0.60-1.20) mg/dL Glucose 114 H (70-105) mg/dL Calcium 7.6 L (8.6-10.3) mg/dL Total Bilirubin 0.6 (0.3-1.0) mg/dL AST 17 (13-39) Units/L ALT 12 (7-52) Units/L Alkaline Phosphatase 75 (34-104) Units/L Albumin 2.3 L (3.5-5.7) g/dL Consult Discharge Plan - Plan Instructions: Fili-Maurer Drain Care (DC), Laparoscopic Cholecystectomy (DC), Endoscopic Retrograde Cholangiopancreatography (GEN), Endoscopic Biliary Stenting (DC) Additional Instructions: General Surgical Discharge Instructions 1. No pushing, pulling, or lifting greater than 15 lbs for 4 weeks. 2. You may remove your dressings and shower beginning today, but no tub baths, soaking, or swimming for 2 weeks. 3. No driving until cleared by rehab. 4. Take ibuprofen every 8 hours for discomfort. If this does not relieve discomfort, you may take the as needed Percocet. Eat a small snack with pain medication as this will help reduce the risk of nausea. Take narcotics as directed. Do not take more narcotics then directed and do not share your narcotics with any other person. Do not drink alcohol while on narcotics. You can take the Zofran/ondansetron if needed for nausea or with a dose of narcotics to prevent nausea. 5. Take stool softeners (Colace) or a water based laxative (Miralax) while taking narcotics. You may hold for loose stools. 6. Report any fevers greater than 100.5F, increase abdominal discomfort, drainage that looks like pus, increased redness or pain at the surgical site, or any vomiting. 7. Report any pain in the calves, shortness of breath, or rapid heartbeat. 8. Follow-up in the office as directed. 9. If you were prescribed antibiotics, do not stop them without talking to your provider. Daily JASKARAN Drain Care: 1. Remove dressings. Shower with antibacterial soap. 2. Do not let the JASKARAN drain dangle from your body. Use the safety pin to secure to your clothing. Secure the JASKARAN to a lanyard or other type of long necklace when you shower. 3. Replace drain gauze and taped to secure. 4. Record the output from your JASKARAN bulb (at least once daily) on the form provided and bring this with you to your follow-up appointment. 5. Keep the JASKARAN drain to suction (squeeze the bulb and replace the cap while squeezing). Referrals: Lenin Zee [Partnered Physician] - 12/01/18 8:50 am Jason Castro MD [Primary Care Provider] - <Lenin Zee - Last Filed: 11/24/18 13:07> Date of Encounter: 11/24/18 - Assessment and Plan (1) Bile leak Current Visit: Yes Status: Resolved (2) COPD (chronic obstructive pulmonary disease) Current Visit: No Status: Chronic Qualifiers: Qualified Code(s): J44.9 - Chronic obstructive pulmonary disease, unspecified (3) Hyperthyroidism Current Visit: No Status: Acute (4) CAD (coronary artery disease) Current Visit: No Status: Acute Qualifiers: Qualified Code(s): I25.10 - Atherosclerotic heart disease of [place] coronary artery without angina pectoris Objective Vital Signs - Last 8 Hours Temp Pulse Resp BP Pulse Ox 11/24/18 10:36 92 11/24/18 09:35 17 92 11/24/18 06:30 97.6 F 74 16 154/87 95 Intake and Output 11/23/18 11/24/18 11/24/18 23:59 07:59 15:59 Intake Total 220 / 520 100 / 100 Output Total 300 / 810 0 / 0 Balance -80 / -290 100 / 100 0 / 100 Intake: IV Fluids 100 / 400 100 / 100 Zosyn 3.375 GM In 0.9 % Sodium 100 / 300 100 / 100 Chloride (Mini-Bag +) 100 ML @ 25 mls/hr IVPB Q8HR [facility] Rx#: [id number] Oral 120 / 120 Output: Urine 300 / 800 Wound Drainage 0 / 0 Right Abdomen 0 / 0 Other: Meal Dinner Percent of Meal Consumed 25% Stool Size Moderate Stool Consistency liquid Stool Characteristics Normal for Patient Stool Color Brown # Voids 1 # Bowel Movements 1 Weight 77.9 kg Patient Weight 11/24/18 23:59 Weight 77.9 kg - Labs 11/24/18 06:12 11/24/18 06:12 Diabetes panel 11/24/18 Range/Units 06:12 Sodium 139 (136-145) mEq/L Potassium 3.3 L (3.5-5.1) mEq/L Chloride 100 (98-107) mEq/L Carbon Dioxide 30 H (23-29) mEq/L BUN 14 (8-23) mg/dL Creatinine 0.58 L (0.60-1.20) mg/dL Glucose 114 H (70-105) mg/dL Calcium 7.6 L (8.6-10.3) mg/dL AST 17 (13-39) Units/L ALT 12 (7-52) Units/L Alkaline Phosphatase 75 (34-104) Units/L Albumin 2.3 L (3.5-5.7) g/dL Calcium panel 11/24/18 Range/Units 06:12 Calcium 7.6 L (8.6-10.3) mg/dL Albumin 2.3 L (3.5-5.7) g/dL Pituitary panel 11/24/18 Range/Units 06:12 Sodium 139 (136-145) mEq/L Potassium 3.3 L (3.5-5.1) mEq/L Chloride 100 (98-107) mEq/L Carbon Dioxide 30 H (23-29) mEq/L BUN 14 (8-23) mg/dL Creatinine 0.58 L (0.60-1.20) mg/dL Glucose 114 H (70-105) mg/dL Calcium 7.6 L (8.6-10.3) mg/dL Adrenal panel 11/24/18 Range/Units 06:12 Sodium 139 (136-145) mEq/L Potassium 3.3 L (3.5-5.1) mEq/L Chloride 100 (98-107) mEq/L Carbon Dioxide 30 H (23-29) mEq/L BUN 14 (8-23) mg/dL Creatinine 0.58 L (0.60-1.20) mg/dL Glucose 114 H (70-105) mg/dL Calcium 7.6 L (8.6-10.3) mg/dL Total Bilirubin 0.6 (0.3-1.0) mg/dL AST 17 (13-39) Units/L ALT 12 (7-52) Units/L Alkaline Phosphatase 75 (34-104) Units/L Albumin 2.3 L (3.5-5.7) g/dL - Attending Attestation I examined this patient and my medical decision-making was reviewed with the HEAD CASHIER. I agree with the documented findings, disposition and treatment plan as described to the extent set forth below. Pt readmitted secondary to bile leak s/p Lap Kristi. Pt underwent IR drainage of biloma and ERCP with sphincterotomy and stent placement for retained bile duct stone. Pt tolerated diet. She is physically deconditioned and will require ECF placement.
--- NOTE | 2018-11-24 11:23 | Physician Discharge Referral ---
ExtendedCare Referral Info Provider in Charge: Dr. Lenin Pat Provider in Charge after Transfer: Other (programming director/assembler body) Institutional Level of Care: Skilled - Diagnosis (1) Bile leak Priority: Primary Status: Resolved (2) Rheumatoid arthritis Priority: Secondary Status: Chronic (3) COPD (chronic obstructive pulmonary disease) Priority: Secondary Status: Chronic (4) Hypokalemia Priority: Secondary Status: Acute - Transfer Medications Home Medications: Aspirin 325 mg PO DAILY 05/15/18 [History] Calcium Carbonate [Calcium] 500 mg PO DAILY 05/15/18 [History] Cholecalciferol (Vitamin D3) [Vitamin D3] 2,000 unit PO DAILY 05/15/18 [History] Folic Acid 1 mg PO DAILY 05/15/18 [History] Levothyroxine [Synthroid] 100 mcg PO DAILY 05/15/18 [History] Methotrexate [Otrexup] 10 mg PO FR 05/15/18 [History] predniSONE [PredniSONE] 5 mg PO DAILY 05/15/18 [History] raNITIdine HCl [Zantac] 150 mg PO BID PRN 05/15/18 [History] Docusate Sodium [Colace] 100 mg PO BID PRN #30 capsule 11/16/18 [Rx] OxyCODONE Immed Rel [Roxicodone 5 MG] 5 mg PO Q6HR PRN 5 Days #20 tablet 11/16/18 [Rx] Ibuprofen [Ibu-200] 200 mg PO Q6HR PRN 11/19/18 [History] Allergies/Adverse Reactions: Allergy/AdvReac Type Severity Reaction Status Date / Time No Known Allergies Allergy Verified 11/20/18 09:45 - Respiratory Orders Smoking Cessation: Smoking cessation has been advised. For more information, call the [place] Tobacco Quit Line at 2-742-DYAF-NOW. - Ancillary Orders May use pressure relief devices daily prn - Advance Directives Living Will: No Power of [place] for Health Care: No Code Status: Full Code - Mobility Orders Ambulate - Rehabiliation Orders Rehab Potential: Good Rehab Orders: Evaluation for Physical Therapy, Evaluation for Occupational Therapy - Treatments Skin tear care topically daily PRN per policy List/Other: General Surgical Discharge Instructions 1. No pushing, pulling, or lifting greater than 15 lbs for 4 weeks. 2. You may remove your dressings and shower beginning today, but no tub baths, soaking, or swimming for 2 weeks. 3. No driving until cleared by rehab. 4. Take ibuprofen every 8 hours for discomfort. If this does not relieve discomfort, you may take the as needed Percocet. Eat a small snack with pain medication as this will help reduce the risk of nausea. Take narcotics as directed. Do not take more narcotics then directed and do not share your narcotics with any other person. Do not drink alcohol while on narcotics. You can take the Zofran/ondansetron if needed for nausea or with a dose of narcotics to prevent nausea. 5. Take stool softeners (Colace) or a water based laxative (Miralax) while taking narcotics. You may hold for loose stools. 6. Report any fevers greater than 100.5F, increase abdominal discomfort, drainage that looks like pus, increased redness or pain at the surgical site, or any vomiting. 7. Report any pain in the calves, shortness of breath, or rapid heartbeat. 8. Follow-up in the office as directed. 9. If you were prescribed antibiotics, do not stop them without talking to your provider. Daily JASKARAN Drain Care: 1. Remove dressings. Shower with antibacterial soap. 2. Do not let the JASKARAN drain dangle from your body. Use the safety pin to secure to your clothing. Secure the JASKARAN to a lanyard or other type of long necklace when you shower. 3. Replace drain gauze and taped to secure. 4. Record the output from your JASKARAN bulb (at least once daily) on the form provided and bring this with you to your follow-up appointment. 5. Keep the JASKARAN drain to suction (squeeze the bulb and replace the cap while squeezing). - Diet Orders Regular CERTIFICATION: I certify that the transfer of the above named patient to an Extended Care Facility is necessary for the continuing treatment of the diagnosis listed. The above information is true and accurate reflection of patient's current condition. Confidential - Redisclosure prohibited without a patient's written consent.
[2018-11-24 14:31] VITALS: BP 143/79
--- NOTE | 2018-11-24 16:31 | Discharge Summary ---
<Odalis Zendejas - Last Filed: 11/24/18 16:24> Date of Encounter: 11/24/18 Time of Encounter: 16:24 ((see progress note for full details)) - Discharge Diagnosis (1) Bile leak Priority: Primary Status: Resolved (2) Rheumatoid arthritis Priority: Secondary Status: Chronic Qualifiers: Rheumatoid arthritis location: hand Rheumatoid factor presence: unspecified presence Laterality: unspecified laterality Qualified Code(s): M06.9 - Rheumatoid arthritis, unspecified (3) COPD (chronic obstructive pulmonary disease) Priority: Secondary Status: Chronic Qualifiers: Qualified Code(s): J44.9 - Chronic obstructive pulmonary disease, unspecified (4) Hypokalemia Priority: Secondary Status: Resolved General Surgery Exam Initial Vital Signs Temp Pulse Resp BP Pulse Ox 98.1 F 96 18 113/65 92 11/19/18 10:41 11/19/18 10:41 11/19/18 10:41 11/19/18 10:41 11/19/18 10:41 See progress note date for today for full exam. - Hospital Course Hospital course: Ms. Berman is a 78 year old female who underwent laparoscopic cholecystectomy on 11/15/[address] Go. Final pathology noted acute gangrenous cholecystitis with transmural necrosis, cholelithiasis, and one lymph node negative for tumor. She was readmitted on 11/19/2018 with biloma. A drain was placed by interventional radiology on 11/20/2018. The patient underwent ERCP on 11/20/2018 with biliary sphincterotomy, temporary stent placed in the common bile duct, recommended follow-up for stent removal by Dr. Tomlin in 6 weeks. Her post ERCP labs showed a decrease in her white blood cell count 13.8 (suspect this is her baseline as she is on chronic steroids for rheumatoid arthritis). She states her abdominal discomfort is significantly improved. Her drainage has decreased significantly, but remains bile tinged. She has been evaluated by PT and OT and given her acute physical deconditioning she has recommended placement in a shelter facility. The patient is agreeable. She is afebrile, tolerating a diet without nausea or vomiting, participating with therapy, and abdominal pain is controlled. We will begin discharge planning to [facility] with a follow-up in the office in approximately one week for a drain check. She is on chronic pain medication and therefore no further prescriptions of narcotics are necessary at this time. - Time Spent with Patient Total time spent providing and/or coordinating discharge services: Greater than 30 minutes (d/c planning, SNF coordination) - Discharge Medications Prescriptions: Continued predniSONE [PredniSONE] 5 mg PO DAILY raNITIdine HCl [Zantac] 150 mg PO BID PRN PRN Reason: GERD Methotrexate [Otrexup] 10 mg PO FR Levothyroxine [Synthroid] 100 mcg PO DAILY Folic Acid 1 mg PO DAILY Calcium Carbonate [Calcium] 500 mg PO DAILY Aspirin 325 mg PO DAILY Cholecalciferol (Vitamin D3) [Vitamin D3] 2,000 unit PO DAILY Docusate Sodium [Colace] 100 mg PO BID PRN #30 capsule PRN Reason: Contstipation OxyCODONE Immed Rel [Roxicodone 5 MG] 5 mg PO Q6HR PRN 5 Days #20 tablet PRN Reason: Severe Pain Ibuprofen [Ibu-200] 200 mg PO Q6HR PRN PRN Reason: Pain Home Medications: Aspirin 325 mg PO DAILY 05/15/18 [History] Calcium Carbonate [Calcium] 500 mg PO DAILY 05/15/18 [History] Cholecalciferol (Vitamin D3) [Vitamin D3] 2,000 unit PO DAILY 05/15/18 [History] Folic Acid 1 mg PO DAILY 05/15/18 [History] Levothyroxine [Synthroid] 100 mcg PO DAILY 05/15/18 [History] Methotrexate [Otrexup] 10 mg PO FR 05/15/18 [History] predniSONE [PredniSONE] 5 mg PO DAILY 05/15/18 [History] raNITIdine HCl [Zantac] 150 mg PO BID PRN 05/15/18 [History] Docusate Sodium [Colace] 100 mg PO BID PRN #30 capsule 11/16/18 [Rx] OxyCODONE Immed Rel [Roxicodone 5 MG] 5 mg PO Q6HR PRN 5 Days #20 tablet 11/16/18 [Rx] Ibuprofen [Ibu-200] 200 mg PO Q6HR PRN 11/19/18 [History] Allergies/Adverse Reactions: Allergy/AdvReac Type Severity Reaction Status Date / Time No Known Allergies Allergy Verified 11/20/18 09:45 Date of admission: 11/19/18 21:48 Primary care physician: Jason Castro MD Consults: 11/19/18 15:34 Consult to Surgery [CONS] Stat Consulting Provider: Acute Care Surgery Reason for Consult: Bile leak Time Notified: 15:35 Call Completed: Yes 11/19/18 21:52 Consult to Gastroenterology [CONS] Routine Consulting Provider: Gastroenterology Smiley Reason for Consult: bile leak s/p Lap guillermo POD#4 Call Completed: Yes 11/19/18 21:54 Consult to Interventional Radiology [CONS] Routine Consulting Provider: Radiology Interventional Cols Reason for Consult: percutaneous drainage of biloma Call Completed: No 11/23/18 10:23 Consult to Case Management [CONS] Routine Comment: DC planning to ECF 11/23/18 10:27 Consult to Physical Therapy [CONS] Stat Comment: Evaluate, develop and implement POC Reason for Consult: post-op deconditioning Does patient have active BEDREST order?: No Is patient medically & hemodynamically stable?: Yes Patient assessed for mobility or mobilized this visit?: No 11/23/18 10:28 Consult to Occupational Therapy [CONS] Stat Comment: Evaluate, develop and implement POC Reason for Consult: post-op deconditioning Does patient have active BEDREST order?: No Is patient medically & hemodynamically stable?: Yes Patient assessed for mobility or mobilized this visit?: No Discharging clinician: Lenin Castro (Isai Zendejas, [employer]) Anticipated date of discharge: 11/24/18 Labs on day of discharge: Labs from last 24 hours 11/24/18 11/24/18 06:12 06:12 WBC 13.8 H RBC 3.70 L Hgb 11.6 Hct 35.3 MCV 95.4 MCH 31.4 MCHC 32.9 RDW 15.5 H Plt Count 322 MPV 10.2 Sodium 139 Potassium 3.3 L Chloride 100 Carbon Dioxide 30 H BUN 14 Creatinine 0.58 L Est GFR ( Amer) > 60 Est GFR (Non-Af Amer) > 60 BUN/Creatinine Ratio 24 Glucose 114 H Calculated Osmolality 289 Calcium 7.6 L Total Bilirubin 0.6 Direct Bilirubin 0.3 H Indirect Bilirubin 0.3 AST 17 ALT 12 Alkaline Phosphatase 75 Serum Total Protein 5.0 L Albumin 2.3 L Globulin 2.7 Albumin/Globulin Ratio 0.9 L - Impressions ITS Impressions Chest X-Ray 11/19/18 10:48 IMPRESSION: No acute findings. D/ / 11/19/2018 12:28:30 Corwin Cameron MD / Sangita Stewart Interpreting Provider: Corwin Cameron MD Abdomen/Pelvis CT 11/19/18 11:00 IMPRESSION: Ascites seen within the abdomen and pelvis most prominently around the gallbladder fossa region. The patient had recent gallbladder surgery. This may be secondary to the surgery. I do not see any definitive evidence for abscess however this may also be related to a possible biliary leak and if further evaluation is needed I would recommend hepatobiliary scan. D/ : / 11/19/2018 12:21:56 Timmy Reilly MD / fabi Interpreting Provider: Timmy Reilly MD Bile Acid Absorption NM 11/19/18 13:03 IMPRESSION: 1. No activity in the gallbladder consistent with cholecystectomy. 2. Abnormal radiotracer accumulation in the subhepatic space on the right side with extension minimally into the right pericolic gutter, abnormal, consistent with bile leak. There is also reflux of radiotracer into the stomach. Critical results were called by Dr. Zoe Garcia MD to Aidan Cortez DO on 11/19/2018 at 14:54. D/ / 11/19/2018 14:57:11 Zoe Garcia MD / fabi Interpreting Provider: Zoe Garcia MD Retroperitoneal Abscess Drainage 11/20/18 00:00 IMPRESSION: Successful CT guided placement of pigtail drain into a gallbladder fossa fluid collection. D/ / Solomon Mendez MD / Solomon Mendez MD Interpreting Provider: Solomon Mendez MD Cath/Invasive Procedure 11/20/18 11:46 IMPRESSION: 1. Fluoroscopy provided intraprocedurally for balloon sweep of the common bile duct and subsequent placement of a biliary stent. Please see the procedure note for further details. D/ / 11/20/2018 13:21:25 Jairo Langston MD / Sangita Stewart Interpreting Provider: Jairo Langston MD - Patient Status Disposition: Transfer SNF Condition: Fair Functional capacity at discharge: uses cane/walker Overall status at discharge: patient is not back to baseline - Discharge Instructions Instructions: Fili-Maurer Drain Care (DC), Laparoscopic Cholecystectomy (DC), Endoscopic Retrograde Cholangiopancreatography (GEN), Endoscopic Biliary Stenting (DC) Follow Up With: Lenin Zee [Partnered Physician] - 12/01/18 8:50 am Jason Castro MD [Primary Care Provider] - Additional Instructions: General Surgical Discharge Instructions 1. No pushing, pulling, or lifting greater than 15 lbs for 4 weeks. 2. You may remove your dressings and shower beginning today, but no tub baths, soaking, or swimming for 2 weeks. 3. No driving until cleared by rehab. 4. Take ibuprofen every 8 hours for discomfort. If this does not relieve discomfort, you may take the as needed Percocet. Eat a small snack with pain medication as this will help reduce the risk of nausea. Take narcotics as directed. Do not take more narcotics then directed and do not share your narcotics with any other person. Do not drink alcohol while on narcotics. You can take the Zofran/ondansetron if needed for nausea or with a dose of narcotics to prevent nausea. 5. Take stool softeners (Colace) or a water based laxative (Miralax) while taking narcotics. You may hold for loose stools. 6. Report any fevers greater than 100.5F, increase abdominal discomfort, drainage that looks like pus, increased redness or pain at the surgical site, or any vomiting. 7. Report any pain in the calves, shortness of breath, or rapid heartbeat. 8. Follow-up in the office as directed. 9. If you were prescribed antibiotics, do not stop them without talking to your provider. Daily JASKARAN Drain Care: 1. Remove dressings. Shower with antibacterial soap. 2. Do not let the JASKARAN drain dangle from your body. Use the safety pin to secure to your clothing. Secure the JASKARAN to a lanyard or other type of long necklace when you shower. 3. Replace drain gauze and taped to secure. 4. Record the output from your JASKARAN bulb (at least once daily) on the form provided and bring this with you to your follow-up appointment. 5. Keep the JASKARAN drain to suction (squeeze the bulb and replace the cap while squeezing). - Diet and Activity Activity: as per physical therapy, increase activity as tolerated Diet: advance to your usual diet <Lenin Zee - Last Filed: 11/24/18 18:19> Date of Encounter: 11/24/18 - Discharge Diagnosis (1) Bile leak Status: Resolved (2) COPD (chronic obstructive pulmonary disease) Status: Chronic Qualifiers: Qualified Code(s): J44.9 - Chronic obstructive pulmonary disease, unspecified (3) Hyperthyroidism Status: Acute (4) CAD (coronary artery disease) Status: Acute Qualifiers: Qualified Code(s): I25.10 - Atherosclerotic heart disease of [place] coronary artery without angina pectoris General Surgery Exam Initial Vital Signs Temp Pulse Resp BP Pulse Ox 98.1 F 96 18 113/65 92 11/19/18 10:41 11/19/18 10:41 11/19/18 10:41 11/19/18 10:41 11/19/18 10:41 - Hospital Course Hospital course: Ms. Berman is a 78 year old female - Time Spent with Patient Total time spent providing and/or coordinating discharge services: Date of admission: 11/19/18 21:48 Primary care physician: Jason Castro MD Consults: 11/19/18 15:34 Consult to Surgery [CONS] Stat Consulting Provider: Acute Care Surgery Reason for Consult: Bile leak Time Notified: 15:35 Call Completed: Yes 11/19/18 21:52 Consult to Gastroenterology [CONS] Routine Consulting Provider: Gastroenterology Smiley Reason for Consult: bile leak s/p Lap guillermo POD#4 Call Completed: Yes 11/19/18 21:54 Consult to Interventional Radiology [CONS] Routine Consulting Provider: Radiology Interventional Cols Reason for Consult: percutaneous drainage of biloma Call Completed: No 11/23/18 10:23 Consult to Case Management [CONS] Routine Comment: DC planning to ECF 11/23/18 10:27 Consult to Physical Therapy [CONS] Stat Comment: Evaluate, develop and implement POC Reason for Consult: post-op deconditioning Does patient have active BEDREST order?: No Is patient medically & hemodynamically stable?: Yes Patient assessed for mobility or mobilized this visit?: No 11/23/18 10:28 Consult to Occupational Therapy [CONS] Stat Comment: Evaluate, develop and implement POC Reason for Consult: post-op deconditioning Does patient have active BEDREST order?: No Is patient medically & hemodynamically stable?: Yes Patient assessed for mobility or mobilized this visit?: No Labs on day of discharge: Labs from last 24 hours 11/24/18 11/24/18 06:12 06:12 WBC 13.8 H RBC 3.70 L Hgb 11.6 Hct 35.3 MCV 95.4 MCH 31.4 MCHC 32.9 RDW 15.5 H Plt Count 322 MPV 10.2 Sodium 139 Potassium 3.3 L Chloride 100 Carbon Dioxide 30 H BUN 14 Creatinine 0.58 L Est GFR ( Amer) > 60 Est GFR (Non-Af Amer) > 60 BUN/Creatinine Ratio 24 Glucose 114 H Calculated Osmolality 289 Calcium 7.6 L Total Bilirubin 0.6 Direct Bilirubin 0.3 H Indirect Bilirubin 0.3 AST 17 ALT 12 Alkaline Phosphatase 75 Serum Total Protein 5.0 L Albumin 2.3 L Globulin 2.7 Albumin/Globulin Ratio 0.9 L - Impressions ITS Impressions Chest X-Ray 11/19/18 10:48 IMPRESSION: No acute findings. D/ / 11/19/2018 12:28:30 Corwin Cameron MD / Sangita Stewart Interpreting Provider: Corwin Cameron MD Abdomen/Pelvis CT 11/19/18 11:00 IMPRESSION: Ascites seen within the abdomen and pelvis most prominently around the gallbladder fossa region. The patient had recent gallbladder surgery. This may be secondary to the surgery. I do not see any definitive evidence for abscess however this may also be related to a possible biliary leak and if further evaluation is needed I would recommend hepatobiliary scan. D/ / 11/19/2018 12:21:56 Timmy Reilly MD / fabi Interpreting Provider: Timmy Reilly MD Bile Acid Absorption NM 11/19/18 13:03 IMPRESSION: 1. No activity in the gallbladder consistent with cholecystectomy. 2. Abnormal radiotracer accumulation in the subhepatic space on the right side with extension minimally into the right pericolic gutter, abnormal, consistent with bile leak. There is also reflux of radiotracer into the stomach. Critical results were called by Dr. Zoe Garcia MD to Aidan Cortez DO on 11/19/2018 at 14:54. D/ / 11/19/2018 14:57:11 Zoe Garcia MD / fabi Interpreting Provider: Zoe Garcia MD Retroperitoneal Abscess Drainage 11/20/18 00:00 IMPRESSION: Successful CT guided placement of pigtail drain into a gallbladder fossa fluid collection. D/ / Solomon Mendez MD / Solomon Mendez MD Interpreting Provider: Solomon Mendez MD Cath/Invasive Procedure 11/20/18 11:46 IMPRESSION: 1. Fluoroscopy provided intraprocedurally for balloon sweep of the common bile duct and subsequent placement of a biliary stent. Please see the procedure note for further details. D/ / 11/20/2018 13:21:25 Jairo Langston MD / Sangita Stewart Interpreting Provider: Jairo Langston MD - Attending Attestation I examined this patient and my medical decision-making was reviewed with the [employer]. I agree with the documented findings, disposition and treatment plan as described except to the extent set forth below. Pt made a very good recovery after treatment for bile leak after lap guillermo. A retained stone was remove from the bile duct and it was stented per GI. Biloma was drained per IR. She is tolerating regular diet. Overall weakness physically let to decision for ECF for rehab at [facility]. F/U as scheduled.
[2018-11-25] MEDS ORDERED: Folic Acid 1 MG TABLET PO SCH (09:00)
[2018-11-25] MEDS ORDERED: Aspirin 325 MG TABLET PO SCH (09:00)
== END 2018-11-24 18:50 | DRG 393 ==
LOC: EMEROOARM 10:38 → 3ANU 10:38
PROVIDERS: ADMIT Surgery; ATTEND Surgery
PROC: IRDRAIN (2018-11-20 13:00)